=== PATIENT | female | born 1995 | race Caucasian/White ===

== ENCOUNTER → 2022-01-10 | Outpatient (CLI) | payer OTHER ==
[2022-01-10 17:19] LABS: HGB 14.4 g/dL (12.0-15.0); MCH 30.6 pg (27.0-32.0); MCV 95.7 fL (80.0-97.0); Mean Platelet Volume 11.9 fL (9.5-12.2); NRBC Per 100 WBC 0 /100 WBCS (0.0-0.0); Platelet Count 262 X 10*3/uL (140-440); RDW 12.3 % (11.5-14.5); WBC 8.03 X 10*3/uL (4.50-10.00)
[2022-01-10 18:38] LABS: African American GFR (CKD) 133.3 (60.0-200.0); Albumin 4.4 g/dL (3.8-4.9); Albumin/Globulin Ratio 1.88 (1.60-3.17); Anion Gap 13.3 mmol/L (10.00-18.00); BUN/Creat Ratio 18.12 Ratio (12.00-20.00); Blood Urea Nitrogen 13.1 mg/dL (9.0-27.0); Calcium 9.2 mg/dL (8.7-10.3); Carbon Dioxide 23.1 mmol/L (20.0-27.5); Globulin 2.3 g/dL (1.6-3.3); Potassium 4.6 mmol/L (3.5-5.5); Total Bilirubin 0.5 mg/dL (0.30-1.20); Total Protein 6.7 g/dL (6.2-8.2)
[2022-01-10 18:39] LABS: T4, Free (Free Thyroxine) 1.52 ng/dL (0.800-1.800)
== END | disposition home or self-care (01) ==
LOC: LABWHC1 10:13
PROVIDERS: ATTEND Physician Assistant
DX: R00.2 Palpitations (principal)
CPT/HCPCS: 36415; 80053; 84439; 84443; 85027

== ENCOUNTER 2022-05-19 18:24 | Emergency (ER) | payer MEDICARE, OTHER ==
[2022-05-19 19:00] VITALS: BP 136/73; PULSE 75; RESP 18; TEMP 98
--- NOTE | 2022-05-19 19:02 | ED ---
ENT HPI - General Stated complaint: ear ache, chest pain Time Seen by Provider: 05/19/22 18:55 Source: RN notes reviewed - History of Present Illness Initial comments: Patient presents with right ear pain,, runny nose, upper respiratory symptoms last 5-7 days. Patient states she is also feeling lightheaded. 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 No headache, no fever or chills, no changes in vision or hearing, no sore throat or difficulty with speech, no neck pain, positive nonproductive cough, patient states it hurts to cough., no abdominal pain, no nausea or vomiting, no changes in urination or bowel movements, no numbness or tingling, no extremity pain, no skin rashes or lesions. Past medical, surgical, social, and family history reviewed. Patient had COVID-19 in 2019. MD complaint: ear pain - Related Data Previous Rx's Medication Instructions Recorded Benzonatate [Tessalon Perles] 100 mg PO TID PRN #30 capsule 05/19/22 methylPREDNISolone [Medrol Dose 0 mg PO DIRECTED #1 packet 05/19/22 Pack] Allergies Allergy/AdvReac Type Severity Reaction Status Date / Time No Known Allergies Allergy Verified 05/19/22 18:55 Review of Systems ROS Statement: Those systems with pertinent positive or pertinent negative responses have been documented in the HPI. ROS Other: All systems not noted in ROS Statement are negative. General Exam - General Exam Comments Initial Comments: Mildly ill-appearing 26-year-old female in minimal distress. Does not appear to be toxic. Vital signs reviewed General appearance: alert, in no apparent distress Head exam: Present: atraumatic, normocephalic, normal inspection Eye exam: Present: normal appearance, PERRL, EOMI. Absent: scleral icterus, conjunctival injection, periorbital swelling ENT exam: Present: normal exam, normal oropharynx, mucous membranes moist, TM's normal bilaterally, normal external ear exam, other (Preliminary nose noted). Absent: mucous membranes dry Neck exam: Present: normal inspection, full ROM. Absent: tenderness, menin gismus, lymphadenopathy Respiratory exam: Present: normal lung sounds bilaterally. Absent: respiratory distress, wheezes, rales, rhonchi, stridor Cardiovascular Exam: Present: regular rate, normal rhythm, normal heart sounds. Absent: systolic murmur, diastolic murmur, rubs, gallop, clicks GI/Abdominal exam: Present: soft, normal bowel sounds. Absent: distended, tenderness, guarding, rebound, rigid Extremities exam: Present: normal inspection, full ROM, normal capillary refill. Absent: tenderness, pedal edema, joint swelling, calf tenderness Back exam: Present: normal inspection Neurological exam: Present: alert, oriented X3, CN II-XII intact Psychiatric exam: Present: normal affect, normal mood Skin exam: Present: warm, dry, intact, normal color. Absent: rash Course Vital Signs 05/19/22 18:55 Temperature 98 F Pulse Rate 75 Respiratory 18 Rate Blood Pressure 136/73 O2 Sat by Pulse 99 Oximetry Medical Decision Making - Medical Decision Making Patient septostomy most consistent with a viral upper respiratory infection. Patient's COVID-19 test is negative. Chest x-ray is clear. Right ear showed no evidence of infectious process. Suspect inadequate eustachian tube function. I'll treat her with a Medrol Dosepak, cough medication, and follow-up. All findings discussed with the patient. Treatment plan discussed. All questions answered Patient is PERC one for control pills Patient was told to return to the ER for any signs or symptoms worsen. Told to return immediately if any other problems arise. All questions answered. Treatment plan discussed. Patient in agreement Every effort has been made to ensure accuracy of this dictation. However, due to the limitations of electronic medical records and dictation devices, errors in charting still occur. The case was discussed in detail with ED attending physician. Presentation, findings, treatment plan discussed in detail. Legal Aide Dr. Ayala - Lab Data Result diagrams: 05/19/22 20:41 Lab Results 05/19/22 05/19/22 05/19/22 Range/Units 19:20 20:41 20:41 WBC 11.4 H (3.8-10.6) k/uL RBC 5.01 (3.80-5.40) m/uL Hgb 15.2 (11.4-16.0) gm/dL Hct 46.9 H (34.0-46.0) % MCV 93.6 (80.0-100.0) fL MCH 30.3 (25.0-35.0) pg MCHC 32.3 (31.0-37.0) g/dL RDW 12.0 (11.5-15.5) % Plt Count 264 (150-450) k/uL MPV 8.2 Neutrophils % 60 % Lymphocytes % 33 % Monocytes % 5 % Eosinophils % 1 % Basophils % 0 % Neutrophils # 6.8 (1.3-7.7) k/uL Lymphocytes # 3.8 (1.0-4.8) k/uL Monocytes # 0.5 (0-1.0) k/uL Eosinophils # 0.1 (0-0.7) k/uL Basophils # 0.1 (0-0.2) k/uL D-Dimer (<0.60) mg/L FEU Magnesium 2.0 (1.6-2.3) mg/dL Troponin I (0.000-0.034) ng/mL Coronavirus (PCR) Not Detected (Not Detectd) 05/19/22 05/19/22 Range/Units 20:41 20:41 WBC (3.8-10.6) k/uL RBC (3.80-5.40) m/uL Hgb (11.4-16.0) gm/dL Hct (34.0-46.0) % MCV (80.0-100.0) fL MCH (25.0-35.0) pg MCHC (31.0-37.0) g/dL RDW (11.5-15.5) % Plt Count (150-450) k/uL MPV Neutrophils % % Lymphocytes % % Monocytes % % Eosinophils % % Basophils % % Neutrophils # (1.3-7.7) k/uL Lymphocytes # (1.0-4.8) k/uL Monocytes # (0-1.0) k/uL Eosinophils # (0-0.7) k/uL Basophils # (0-0.2) k/uL D-Dimer 0.27 (<0.60) mg/L FEU Magnesium (1.6-2.3) mg/dL Troponin I <0.012 (0.000-0.034) ng/mL Coronavirus (PCR) (Not Detectd) - EKG Data EKG Comments: EKG done at 2041 and read by the ED attending physician reveals sinus rhythm with a rate of 79. Intervals are normal. Left axis deviation, poor R-wave progression. Low voltage in the lateral precordial leads. Possible left ventricular hypertrophy. Nonspecific T-wave changes with flattening in V2, V3 and inversion in lead 3. No comparison study Disposition Clinical Impression: Viral URI with cough, Otalgia of right ear, Eustachian tube dysfunction Disposition: HOME SELF-CARE Condition: Good Instructions (If sedation given, give patient instructions): Upper Respiratory Infection (ED) Additional Instructions: Follow-up with your regular physician as directed. Return to the ER immediately if any symptoms worsen, new symptoms arise, or any other problems develop. Prescriptions: methylPREDNISolone [Medrol Dose Pack] 0 mg PO DIRECTED #1 packet Benzonatate [Tessalon Perles] 100 mg PO TID PRN #30 capsule PRN Reason: Cough Is patient prescribed a controlled substance at d/c from ED?: No Referrals: Royce Allen MD [Primary Care Provider] - 1-2 days
--- NOTE | 2022-05-19 19:20 | XR ---
EXAMINATION TYPE: XR chest 2V DATE OF EXAM: 05/19/2022 7:08 PM COMPARISON: None TECHNIQUE: XR chest 2V Frontal and lateral views of the chest. CLINICAL INDICATION:Female, 26 years old with history of Cough; FINDINGS: Lungs/Pleura: There is no evidence of pleural effusion, focal consolidation, or pneumothorax. Pulmonary vascularity: Unremarkable. Heart/mediastinum: Cardiomediastinal silhouette is unremarkable. Musculoskeletal: No acute osseous pathology. IMPRESSION: No acute cardiopulmonary disease/process.
[2022-05-19 21:05] LABS: Basophils # (A) 0.1 k/uL (0-0.2); Basophils % (A) 0 %; Eosinophils # (A) 0.1 k/uL (0-0.7); Eosinophils % (A) 1 %; HCT 46.9 % (34.0-46.0); HGB 15.2 gm/dL (11.4-16.0); Lymphocytes # (A) 3.8 k/uL (1.0-4.8); Lymphocytes % (A) 33 %; MCH 30.3 pg (25.0-35.0); MCHC 32.3 g/dL (31.0-37.0); MCV 93.6 fL (80.0-100.0); Mean Platelet Volume 8.2; Monocytes # (A) 0.5 k/uL (0-1.0); Monocytes % (A) 5 %; Neutrophils # (A) 6.8 k/uL (1.3-7.7); Neutrophils % (A) 60 %; Platelet Count 264 k/uL (150-450); RBC 5.01 m/uL (3.80-5.40); WBC 11.4 k/uL (3.8-10.6)
== END 2022-05-19 22:13 | disposition home or self-care (01) ==
LOC: EC 18:24
DX: J06.9 Acute upper respiratory infection, unspecified (principal); H69.91 Unspecified Eustachian tube disorder, right ear; R07.9 Chest pain, unspecified; Z20.822 Contact with and (suspected) exposure to COVID-19
CPT/HCPCS: 36415; 71046; 83735; 84484; 85025; 85379; 87635; 93005; 99284

== ENCOUNTER 2022-08-30 01:47 | Emergency (ER) | payer MEDICARE, OTHER ==
[2022-08-30] MEDS ORDERED: SODIUM CHLORIDE 0.9% 1,000 ML IV STA (02:01)
--- NOTE | 2022-08-30 02:02 | ED ---
Overdose HPI - General Source: patient, RN notes reviewed, old records reviewed Mode of arrival: ambulatory Limitations: no limitations, language barrier - History of Present Illness MD Complaint: intentional overdose, accidental overdose -: minutes(s) Intent: unwilling to say How Overdose Was Discovered: called family/friend Context: Intentional Overdose: drug/ETOH problems Context: Accidental Overdose: medication error Associated Symptoms: depression Treatments Prior to Arrival: none <Darrel Carlton - Last Filed: 08/30/22 07:08> <Darrel Bryant - Last Filed: 08/30/22 11:10> - General Chief Complaint: Overdose Stated Complaint: over dose Time Seen by Provider: 08/30/22 02:01 - History of Present Illness Initial Comments: This is a 27-year-old female DF for evaluation patient Dese for evaluation of psychiatric illness. Patient did take overdose and attempted suicide attempt tonight. Multiple different medications, we did speak with poison control who had concern for provoke seizures (Darrel Carlton) - Related Data Previous Rx's Medication Instructions Recorded Benzonatate [Tessalon Perles] 100 mg PO TID PRN #30 capsule 05/19/22 methylPREDNISolone [Medrol Dose 0 mg PO DIRECTED #1 packet 05/19/22 Pack] Allergies Allergy/AdvReac Type Severity Reaction Status Date / Time No Known Allergies Allergy Verified 08/30/22 01:56 EST Review of Systems ROS Other: All systems not noted in ROS Statement are negative. <Darrel Carlton - Last Filed: 08/30/22 07:08> ROS Other: All systems not noted in ROS Statement are negative. <Darrel Bryant - Last Filed: 08/30/22 11:10> ROS Statement: Those systems with pertinent positive or pertinent negative responses have been documented in the HPI. Past Medical History Additional Past Medical History / Comment(s): autism History of Any Multi-Drug Resistant Organisms: None Reported Past Surgical History: Coronary Bypass/CABG, Ear Surgery Additional Past Surgical History / Comment(s): wisdom, bunion Past Psychological History: ADD/ADHD, Anxiety, Depression Smoking Status: Never smoker Past Alcohol Use History: Occasional Past Drug Use History: None Reported <Darrel Carlton - Last Filed: 08/30/22 07:08> General Exam Limitations: no limitations General appearance: alert, in no apparent distress Head exam: Present: atraumatic, normocephalic, normal inspection Eye exam: Present: normal appearance, PERRL, EOMI. Absent: scleral icterus, conjunctival injection, periorbital swelling ENT exam: Present: normal exam, mucous membranes moist Neck exam: Present: normal inspection. Absent: tenderness, meningismus, lymphadenopathy Respiratory exam: Present: normal lung sounds bilaterally. Absent: respiratory distress, wheezes, rales, rhonchi, stridor Cardiovascular Exam: Present: normal rhythm, tachycardia, normal heart sounds. Absent: systolic murmur, diastolic murmur, rubs, gallop, clicks GI/Abdominal exam: Present: soft, normal bowel sounds. Absent: distended, tenderness, guarding, rebound, rigid Extremities exam: Present: normal inspection, full ROM, normal capillary refill. Absent: tenderness, pedal edema, joint swelling, calf tenderness Back exam: Present: normal inspection Neurological exam: Present: alert, oriented X3, CN II-XII intact Psychiatric exam: Present: normal affect, normal mood Skin exam: Present: warm, dry, intact, normal color. Absent: rash <Darrel Carlton - Last Filed: 08/30/22 07:08> Course <Darrel Carlton - Last Filed: 08/30/22 07:08> Vital Signs 08/30/22 08/30/22 08/30/22 01:52 EST 03:06 04:18 Temperature 97.7 F 98.2 F Pulse Rate 109 H 84 84 Respiratory 20 16 16 Rate Blood Pressure 154/99 110/74 O2 Sat by Pulse 100 98 Oximetry - Reevaluation(s) Reevaluation #1: 08/30/22 06:22 medical record is reviewed medically clear for psychiatrc evaluation (Darrel Carlton) Medical Decision Making - Lab Data Result diagrams: 08/30/22 02:00 08/30/22 02:00 - EKG Data -: EKG Interpreted by Me (EKG is sinus 92 ID 185 QRS 97 QTC 392) <Darrel Carlton - Last Filed: 08/30/22 07:08> - Lab Data Result diagrams: 08/30/22 02:00 08/30/22 02:00 <Darrel Bryant - Last Filed: 08/30/22 11:10> - Medical Decision Making EPS evaluated the patient and determined with a safety plan that the patient cou ld go home safely. (Darrel Bryant) - Lab Data Lab Results 08/30/22 08/30/22 08/30/22 Range/Units 02:00 02:00 02:00 WBC 11.4 H (3.8-10.6) k/uL RBC 4.72 (3.80-5.40) m/uL Hgb 14.2 (11.4-16.0) gm/dL Hct 42.9 (34.0-46.0) % MCV 90.8 (80.0-100.0) fL MCH 30.2 (25.0-35.0) pg MCHC 33.2 (31.0-37.0) g/dL RDW 12.2 (11.5-15.5) % Plt Count 258 (150-450) k/uL MPV 9.0 Neutrophils % 50 % Lymphocytes % 43 % Monocytes % 4 % Eosinophils % 1 % Basophils % 1 % Neutrophils # 5.7 (1.3-7.7) k/uL Lymphocytes # 4.8 (1.0-4.8) k/uL Monocytes # 0.5 (0-1.0) k/uL Eosinophils # 0.1 (0-0.7) k/uL Basophils # 0.1 (0-0.2) k/uL PT 10.2 (9.0-12.0) sec INR 0.9 (<1.2) Sodium 140 (137-145) mmol/L Potassium 3.8 (3.5-5.1) mmol/L Chloride 107 (98-107) mmol/L Carbon Dioxide 17 L (22-30) mmol/L Anion Gap 16 mmol/L BUN 14 (7-17) mg/dL Creatinine 0.90 (0.52-1.04) mg/dL Est GFR (CKD-EPI)AfAm >90 (>60 ml/min/1.73 sqM) Est GFR (CKD-EPI)NonAf 88 (>60 ml/min/1.73 sqM) Glucose 108 H (74-99) mg/dL Calcium 8.9 (8.4-10.2) mg/dL Phosphorus 3.8 (2.5-4.5) mg/dL Magnesium 2.1 (1.6-2.3) mg/dL Total Bilirubin 0.4 (0.2-1.3) mg/dL AST 27 (14-36) U/L ALT 42 H (4-34) U/L Alkaline Phosphatase 63 (38-126) U/L Total Protein 7.2 (6.3-8.2) g/dL Albumin 4.4 (3.5-5.0) g/dL Lipase 242 (23-300) U/L Urine Color Urine Appearance (Clear) Urine pH (5.0-8.0) Ur Specific [place] (1.001-1.035) Urine Protein (Negative) Urine Glucose (UA) (Negative) Urine Ketones (Negative) Urine Blood (Negative) Urine Nitrite (Negative) Urine Bilirubin (Negative) Urine Urobilinogen (<2.0) mg/dL Ur Leukocyte Esterase (Negative) Urine HCG, Qual (Not Detectd) Salicylates <1.0 mg/dL Urine Opiates Screen (NotDetected) Ur Oxycodone Screen (NotDetected) Urine Methadone Screen (NotDetected) Ur Propoxyphene Screen (NotDetected) Acetaminophen <10.0 ug/mL Ur Barbiturates Screen (NotDetected) U Tricyclic Antidepress (NotDetected) Ur Phencyclidine Scrn (NotDetected) Ur Amphetamines Screen (NotDetected) U Methamphetamines Scrn (NotDetected) U Benzodiazepines Scrn (NotDetected) Urine Cocaine Screen (NotDetected) U Marijuana (THC) Screen (NotDetected) Serum Alcohol <10 mg/dL Coronavirus (PCR) (Not Detectd) 08/30/22 08/30/22 08/30/22 Range/Units 04:14 05:57 05:57 WBC (3.8-10.6) k/uL RBC (3.80-5.40) m/uL Hgb (11.4-16.0) gm/dL Hct (34.0-46.0) % MCV (80.0-100.0) fL MCH (25.0-35.0) pg MCHC (31.0-37.0) g/dL RDW (11.5-15.5) % Plt Count (150-450) k/uL MPV Neutrophils % % Lymphocytes % % Monocytes % % Eosinophils % % Basophils % % Neutrophils # (1.3-7.7) k/uL Lymphocytes # (1.0-4.8) k/uL Monocytes # (0-1.0) k/uL Eosinophils # (0-0.7) k/uL Basophils # (0-0.2) k/uL PT (9.0-12.0) sec INR (<1.2) Sodium (137-145) mmol/L Potassium (3.5-5.1) mmol/L Chloride (98-107) mmol/L Carbon Dioxide (22-30) mmol/L Anion Gap mmol/L BUN (7-17) mg/dL Creatinine (0.52-1.04) mg/dL Est GFR (CKD-EPI)AfAm (>60 ml/min/1.73 sqM) Est GFR (CKD-EPI)NonAf (>60 ml/min/1.73 sqM) Glucose (74-99) mg/dL Calcium (8.4-10.2) mg/dL Phosphorus (2.5-4.5) mg/dL Magnesium (1.6-2.3) mg/dL Total Bilirubin (0.2-1.3) mg/dL AST (14-36) U/L ALT (4-34) U/L Alkaline Phosphatase (38-126) U/L Total Protein (6.3-8.2) g/dL Albumin (3.5-5.0) g/dL Lipase (23-300) U/L Urine Color Light Yellow Urine Appearance Clear (Clear) Urine pH 6.0 (5.0-8.0) Ur Specific [place] 1.015 (1.001-1.035) Urine Protein Negative (Negative) Urine Glucose (UA) Negative (Negative) Urine Ketones Negative (Negative) Urine Blood Negative (Negative) Urine Nitrite Negative (Negative) Urine Bilirubin Negative (Negative) Urine Urobilinogen <2.0 (<2.0) mg/dL Ur Leukocyte Esterase Negative (Negative) Urine HCG, Qual Not Detected (Not Detectd) Salicylates mg/dL Urine Opiates Screen Not Detected (NotDetected) Ur Oxycodone Screen Not Detected (NotDetected) Urine Methadone Screen Not Detected (NotDetected) Ur Propoxyphene Screen Not Detected (NotDetected) Acetaminophen ug/mL Ur Barbiturates Screen Not Detected (NotDetected) U Tricyclic Antidepress Not Detected (NotDetected) Ur Phencyclidine Scrn Not Detected (NotDetected) Ur Amphetamines Screen Not Detected (NotDetected) U Methamphetamines Scrn Not Detected (NotDetected) U Benzodiazepines Scrn Not Detected (NotDetected) Urine Cocaine Screen Not Detected (NotDetected) U Marijuana (THC) Screen Not Detected (NotDetected) Serum Alcohol mg/dL Coronavirus (PCR) Not Detected (Not Detectd) Disposition <Darrel Carlton - Last Filed: 08/30/22 07:08> Is patient prescribed a controlled substance at d/c from ED?: No Time of Disposition: 11:10 <Darrel Bryant - Last Filed: 08/30/22 11:10> Clinical Impression: Situational depression Disposition: HOME SELF-CARE Condition: Good Instructions (If sedation given, give patient instructions): Depression (ED) Referrals: Tripp Allen MD [REFERRING] - 1-2 days
[2022-08-30 02:30] LABS: Basophils # (A) 0.1 k/uL (0-0.2); Basophils % (A) 1 %; Eosinophils # (A) 0.1 k/uL (0-0.7); Eosinophils % (A) 1 %; HCT 42.9 % (34.0-46.0); HGB 14.2 gm/dL (11.4-16.0); Lymphocytes # (A) 4.8 k/uL (1.0-4.8); Lymphocytes % (A) 43 %; MCH 30.2 pg (25.0-35.0); MCHC 33.2 g/dL (31.0-37.0); MCV 90.8 fL (80.0-100.0); Monocytes # (A) 0.5 k/uL (0-1.0); Monocytes % (A) 4 %; Neutrophils # (A) 5.7 k/uL (1.3-7.7); Neutrophils % (A) 50 %; Platelet Count 258 k/uL (150-450); RBC 4.72 m/uL (3.80-5.40); RDW 12.2 % (11.5-15.5); WBC 11.4 k/uL (3.8-10.6)
[2022-08-30 02:43] LABS: ALT 42 U/L (4-34); AST 27 U/L (14-36); Acetaminophen <10.0 ug/mL; African American GFR (CKD) >90 (>60 ml/min/1.73 sqM); Albumin 4.4 g/dL (3.5-5.0); Alcohol <10 mg/dL; Alkaline Phosphatase 63 U/L (38-126); Anion Gap 16 mmol/L; Blood Urea Nitrogen 14 mg/dL (7-17); Calcium 8.9 mg/dL (8.4-10.2); Carbon Dioxide 17 mmol/L (22-30); Chloride 107 mmol/L (98-107); Glucose 108 mg/dL (74-99); Lipase 242 U/L (23-300); Magnesium 2.1 mg/dL (1.6-2.3); Non-African American GFR(CKD) 88 (>60 ml/min/1.73 sqM); Phosphorus 3.8 mg/dL (2.5-4.5); Potassium 3.8 mmol/L (3.5-5.1); Salicylate <1.0 mg/dL; Sodium 140 mmol/L (137-145); Total Bilirubin 0.4 mg/dL (0.2-1.3); Total Protein 7.2 g/dL (6.3-8.2)
[2022-08-30 02:47] LABS: INR 0.9 (<1.2); Prothrombin Time 10.2 sec (9.0-12.0)
[2022-08-30 06:36] LABS: Appearance,Urine Clear (Clear); Bilirubin,Urine Negative (Negative); Blood,Urine Negative (Negative); Color,Urine Light Yellow; Glucose,Urine (UA) Negative (Negative); Ketones,Urine Negative (Negative); Leukocyte Esterase,Urine Negative (Negative); Nitrite,Urine Negative (Negative); Protein,Urine Negative (Negative); Specific Gravity,Urine 1.015 (1.001-1.035); Urobilinogen,Urine <2.0 mg/dL (<2.0)
[2022-08-30 06:42] LABS: Amphetamine Screen,Urine Not Detected (NotDetected); Barbiturate Screen,Urine Not Detected (NotDetected); Benzodiazepines Screen,Urine Not Detected (NotDetected); Cocaine Screen,Urine Not Detected (NotDetected); Methadone Screen, Urine Not Detected (NotDetected); Opiate Screen,Urine Not Detected (NotDetected); Oxycodone Screen, Urine Not Detected (NotDetected); Phencyclidine Screen,Urine Not Detected (NotDetected); Tricyclic Antidepressant,Urine Not Detected (NotDetected); Urn Cannabinoid Scrn Not Detected (NotDetected)
[2022-08-30 11:46] VITALS: BP 132/79; PULSE 88; RESP 18; TEMP 98.1
== END 2022-08-30 11:46 | disposition home or self-care (01) ==
LOC: EC 01:47
DX: F32.A Depression, unspecified (principal)
CPT/HCPCS: 82075; 36415; 93005; 80053; 83690; 83735; 84100; 85025; 85610; 81003; 81025; 80306; 80143; 87635; 80179; 99285; G0480; 80320

== ENCOUNTER 2022-09-24 21:29 | Emergency (ER) | payer MEDICARE, OTHER ==
--- NOTE | 2022-09-24 23:34 | XR ---
EXAMINATION TYPE: XR chest 2V DATE OF EXAM: 09/24/2022 COMPARISON: NONE HISTORY: Cough TECHNIQUE: 2 view FINDINGS: Heart and mediastinum are normal. Lungs are clear. Diaphragm is normal. Bony thorax is norm al. IMPRESSION: Normal chest.
[2022-09-25] MEDS ORDERED: predniSONE 50 MG TAB PO STA (00:24)
[2022-09-25] MEDS ORDERED: IPRATROPIUM-ALBUTEROL 3 ML NEB INHALATION STA (00:24)
[2022-09-25 00:26] VITALS: BP 125/85; TEMP 97.6
[2022-09-25 00:31] VITALS: RESP 19
--- NOTE | 2022-09-25 00:32 | ED ---
URI HPI - General Chief Complaint: Upper Respiratory Infection Stated Complaint: Cough,LEIGH Time Seen by Provider: 09/24/22 23:54 Source: patient, RN notes reviewed Mode of arrival: ambulatory Limitations: no limitations - History of Present Illness Initial Comments: This is a pleasant 27-year-old female who was diagnosed with influenza on . Patient has had a cough since then. Patient believes she is coughing worse since then. Patient states she went to a coughing fit earlier this evening and actually felt like she could not breathe during the coughing fit. Patient took 2 puffs off her friend's inhaler and states that it seemed to help. Patient has no history of asthma or cigarette smoking. No headache, no fever or chills, no changes in vision or hearing, no sore throat or difficulty with speech, no neck pain, no chest pain, no abdominal pain, no nausea or vomiting, no changes in urination or bowel movements, no numbness or tingling, no extremity pain, no skin rashes or lesions. Past medical, surgical, social, and family history reviewed. MD Complaint: cough - Related Data Previous Rx's Medication Instructions Recorded Benzonatate [Tessalon Perles] 100 mg PO TID PRN #30 capsule 05/19/22 methylPREDNISolone [Medrol Dose 0 mg PO DIRECTED #1 packet 05/19/22 Pack] Albuterol Inhaler [Ventolin Hfa 2 puff INHALATION Q4HR PRN #1 each 09/25/22 Inhaler] predniSONE 50 mg PO DAILY #3 tab 09/25/22 Allergies Allergy/AdvReac Type Severity Reaction Status Date / Time No Known Allergies Allergy Verified 09/24/22 23:14 Review of Systems ROS Statement: Those systems with pertinent positive or pertinent negative responses have been documented in the HPI. ROS Other: All systems not noted in ROS Statement are negative. Past Medical History Additional Past Medical History / Comment(s): autism History of Any Multi-Drug Resistant Organisms: None Reported Past Surgical History: Coronary Bypass/CABG, Ear Surgery Additional Past Surgical History / Comment(s): ramone, rachell Past Psychological History: ADD/ADHD, Anxiety, Depression Smoking Status: Never smoker Past Alcohol Use History: Occasional Past Drug Use History: None Reported General Exam - General Exam Comments Initial Comments: Patient appears to be minimally ill but not toxic. Vital signs stable, patient afebrile. Limitations: no limitations General appearance: alert, in no apparent distress Head exam: Present: atraumatic, normocephalic, normal inspection Eye exam: Present: normal appearance, PERRL, EOMI. Absent: scleral icterus, conjunctival injection, periorbital swelling ENT exam: Present: normal exam, normal oropharynx, mucous membranes moist, normal external ear exam. Absent: mucous membranes dry Neck exam: Present: normal inspection. Absent: tenderness, meningismus, lymphadenopathy Respiratory exam: Present: normal lung sounds bilaterally, other (Dry cough noted during examination). Absent: respiratory distress, wheezes, rales, rhonchi, stridor, chest wall tenderness, accessory muscle use Cardiovascular Exam: Present: regular rate, normal rhythm, normal heart sounds. Absent: systolic murmur, diastolic murmur, rubs, gallop, clicks GI/Abdominal exam: Present: soft, normal bowel sounds. Absent: distended, tenderness, guarding, rebound, rigid Extremities exam: Present: normal inspection, full ROM, normal capillary refill. Absent: tenderness, pedal edema, joint swelling, calf tenderness Back exam: Present: normal inspection Neurological exam: Present: alert, oriented X3, CN II-XII intact Psychiatric exam: Present: normal affect, normal mood Skin exam: Present: warm, dry, intact, normal color. Absent: rash Course Vital Signs 09/24/22 09/25/22 09/25/22 23:10 00:14 00:21 Temperature 98.9 F 97.6 F Pulse Rate 87 78 Respiratory 20 18 19 Rate Blood Pressure 142/64 125/85 O2 Sat by Pulse 97 97 Oximetry 09/25/22 00:34 Temperature Pulse Rate 76 Respiratory Rate Blood Pressure O2 Sat by Pulse Oximetry Medical Decision Making - Medical Decision Making I suspect the patient has postinflammatory lung inflammation from the recent influenza infection. Chest x-ray is clear. Patient believes she was improved with albuterol treatments. Will prescribe a short course of prednisone and an inhaler. We'll have the patient follow-up with her PCP. Patient does not appear to have any systemic infection. Patient is PERC 0 Patient was told to return to the ER for any signs or symptoms worsen. Told to return immediately if any other problems arise. All questions answered. Treatment plan discussed. Patient in agreement Every effort has been made to ensure accuracy of this dictation. However, due to the limitations of electronic medical records and dictation devices, errors in charting still occur. The case was discussed in detail with ED attending physician. Presentation, findings, treatment plan discussed in detail. Accounting Supervisor Dr. Carlton - Lab Data Lab Results 09/24/22 09/24/22 Range/Units 23:18 23:18 Coronavirus (PCR) Not Detected (Not Detectd) Influenza Type A RNA Not Detected (Not Detectd) Influenza Type B (PCR) Not Detected (Not Detectd) RSV (PCR) Negative (Negative) - Radiology Data Radiology results: report reviewed, image reviewed Two-view chest x-ray read by me reveals no acute pathology. No infiltrate. No pneumothorax. No cardiomegaly. No effusion. No osseous lesion. This was my interpretation. Reviewed radiology interpretation. Disposition Clinical Impression: Acute bronchitis Disposition: HOME SELF-CARE Condition: Stable Instructions (If sedation given, give patient instructions): Acute Bronchitis (ED) Additional Instructions: Albuterol 2 puffs every 4 hours as needed for coughing. Prednisone as directed. Follow-up with your regular physician as directed. Return to the ER immediately if any symptoms worsen, new symptoms arise, or any other problems develop. Is patient prescribed a controlled substance at d/c from ED?: No Referrals: Royce Allen MD [Primary Care Provider] - 1-2 days Time of Disposition: 00:47
[2022-09-25 00:49] VITALS: PULSE 80
== END 2022-09-25 01:04 | disposition home or self-care (01) ==
LOC: EC 21:29
DX: J20.9 Acute bronchitis, unspecified (principal); F41.9 Anxiety disorder, unspecified; F32.A Depression, unspecified; Z20.822 Contact with and (suspected) exposure to COVID-19
CPT/HCPCS: 94640; 87502; 87634; 87635; 71046; 99285; J7512

== ENCOUNTER → 2023-09-24 | Outpatient (CLI) | payer MEDICARE, OTHER ==
--- NOTE | 2023-09-24 23:02 | MR ---
EXAMINATION TYPE: MR knee RT wo con DATE OF EXAM: 09/24/2023 COMPARISON: Outside right knee x-ray September 15, 2023 HISTORY: Right knee pain, history of meniscus repair 2022. TECHNIQUE: Multiplanar, multisequence images of the knee is performed without IV contrast. FINDINGS: MEDIAL MENISCUS: Anterior and posterior horns are intact without tear. LATERAL MENISCUS: Partial discoid lateral meniscus redemonstrated. No suspicious new tear is seen. CRUCIATE LIGAMENTS: The anterior and posterior cruciate ligaments are intact and unremarkable. COLLATERAL LIGAMENTS: The medial collateral ligament and lateral collateral ligament complex are inta ct . Stable thickening and heterogeneous signal at the femoral attachment of the LCL consistent with old trauma. EXTENSOR MECHANISM: Visualized quadriceps and patellar tendons are intact. EFFUSION: No significant suprapatellar joint effusion. POPLITEAL CYST: No popliteal/aguillon cyst. TRICOMPARTMENT SPACES: Mild tricompartment joint space loss without significant spurring. CARTILAGE: Tricompartmental articular cartilage fairly well preserved. BONE MARROW SIGNAL: New 4 mm small focus of increased T2 signal involving the medial tibial plateau c oronal image 14 corresponding to sagittal image 11. OTHER: No additional significant abnormality is appreciated. IMPRESSION: No new meniscal or ligamentous tear is seen. New tiny 4 mm osteochondral injury medial ti bial plateau is noted.
== END | disposition home or self-care (01) ==
LOC: RADMRIMAIN 20:15
PROVIDERS: ATTEND Orthopaedic Surgery
DX: M25.561 Pain in right knee (principal); R93.7 Abnormal findings on diagnostic imaging of other parts of musculoskeletal system

== ENCOUNTER 2024-02-14 18:42 | Inpatient (IN) | payer MEDICARE, MEDICAID ==
--- NOTE | 2024-02-14 19:59 | ED ---
General Adult HPI - General Source: patient Mode of arrival: ambulatory Limitations: no limitations <Aroldo Rodgers - Last Filed: 02/14/24 20:00> <Simone Fuentes - Last Filed: 02/15/24 11:37> - General Source: RN notes reviewed, old records reviewed Mode of arrival: ambulatory Limitations: no limitations - History of Present Illness Consistency: constant, intermittent Improves with: none Worsens with: none Associated Symptoms: denies other symptoms <Darrel Carlton - Last Filed: 02/23/24 20:30> - General Chief complaint: Psychiatric Symptoms Stated complaint: Mental Health Time Seen by Provider: 02/14/24 19:58 - History of Present Illness Initial comments: 28-year-old female presents to the ED with complaints of suicidal ideation. Patient reports over the past month has had increasing suicidal ideation and reports yesterday had a break-up. Since then reports that this has been increasing. (Aroldo Rodgers) This is a 28-year-old female to the ER for evaluation patient presents today for need for psychiatric evaluation increasing suicidal thoughts (Darrel Carlton) - Related Data Home Medications Medication Instructions Recorded Confirmed Esomeprazole Magnesium [NexIUM] 20 mg PO DAILY 07/01/23 02/15/24 Levonorgestrel/Ethin.estradiol 1 tab PO DAILY 07/01/23 02/15/24 [Levora-28 Tablet] fluvoxaMINE MALEATE 50 mg PO BID 07/01/23 02/15/24 busPIRone HCl [Buspar] 10 mg PO BID 02/15/24 02/15/24 traZODone HCL [Desyrel] 100 mg PO HS 02/15/24 02/15/24 Allergies Allergy/AdvReac Type Severity Reaction Status Date / Time lorazepam [From Ativan] Allergy Hallucinati Verified 02/15/24 11:10 ons quetiapine [From Seroquel] Allergy Unknown Verified 02/15/24 11:10 sertraline [From Zoloft] Allergy Hallucinati Verified 02/15/24 11:10 ons Review of Systems ROS Other: All systems not noted in ROS Statement are negative. <Aroldo Rodgers - Last Filed: 02/14/24 20:00> ROS Other: All systems not noted in ROS Statement are negative. <Simone Fuentes - Last Filed: 02/15/24 11:37> ROS Other: All systems not noted in ROS Statement are negative. <Darrel Carlton - Last Filed: 02/23/24 20:30> ROS Statement: Those systems with pertinent positive or pertinent negative responses have been documented in the HPI. Past Medical History Past Medical History: GERD/Reflux Additional Past Medical History / Comment(s): autism sleep apnea History of Any Multi-Drug Resistant Organisms: None Reported Past Surgical History: Ear Surgery Additional Past Surgical History / Comment(s): wisdom, bunion Past Psychological History: ADD/ADHD, Anxiety, Depression Smoking Status: Never smoker Past Alcohol Use History: Occasional Past Drug Use History: None Reported <Aroldo Rodgers - Last Filed: 02/14/24 20:00> General Exam Limitations: no limitations <Aroldo Rodgers - Last Filed: 02/14/24 20:00> General appearance: alert, in no apparent distress Head exam: Present: atraumatic, normocephalic, normal inspection Eye exam: Present: normal appearance, PERRL, EOMI. Absent: scleral icterus, conjunctival injection, periorbital swelling ENT exam: Present: normal exam, mucous membranes moist Neck exam: Present: normal inspection. Absent: tenderness, meningismus, lymphadenopathy Respiratory exam: Present: normal lung sounds bilaterally. Absent: respiratory distress, wheezes, rales, rhonchi, stridor Cardiovascular Exam: Present: regular rate, normal rhythm, normal heart sounds. Absent: systolic murmur, diastolic murmur, rubs, gallop, clicks GI/Abdominal exam: Present: soft, normal bowel sounds. Absent: distended, tenderness, guarding, rebound, rigid Extremities exam: Present: normal inspection, full ROM, normal capillary refill. Absent: tenderness, pedal edema, joint swelling, calf tenderness Back exam: Present: normal inspection Neurological exam: Present: alert, oriented X3, CN II-XII intact Psychiatric exam: Present: normal affect, normal mood Skin exam: Present: warm, dry, intact, normal color. Absent: rash <Darrel Carlton - Last Filed: 02/23/24 20:30> - General Exam Comments Initial Comments: Visual Physical Exam Vital signs reviewed General: Well-appearing, nontoxic, no acute distress. Head: Normocephalic, atraumatic Eyes: PERRLA, EOMI ENT: Airway patent Chest: Nonlabored breathing Skin: No visual rash, normal skin tone Neuro: Alert and oriented 3 Musculoskeletal: No gross abnormalities (Aroldo Rodgers) Course <Darrel Carlton - Last Filed: 02/23/24 20:30> Vital Signs 02/14/24 02/15/24 02/15/24 18:55 15:00 16:00 Temperature 97.7 F 98.1 F 98.1 F Pulse Rate 76 67 67 Respiratory 20 18 18 Rate Blood Pressure 123/71 118/78 118/78 O2 Sat by Pulse 99 98 98 Oximetry - Reevaluation(s) Reevaluation #1: 02/14/24 23:26 Records reviewed (Darrel Carlton) Reevaluation #2: 02/14/24 23:26 Medically cleared for psychiatric evaluation (Darrel Carlton) Medical Decision Making <Aroldo Rodgers - Last Filed: 02/14/24 20:00> - Lab Data Result diagrams: 02/17/24 07:41 02/17/24 07:41 <Darrel Carlton - Last Filed: 02/23/24 20:30> - Medical Decision Making Quicknote portion performed. Signed Aroldo Rodgers PA-C (Aroldo Rodgers) 28 female be transferred for inpatient psychiatric evaluation and treatment (Darrel Carlton) - Lab Data Lab Results 02/14/24 02/15/24 02/15/24 Range/Units 22:23 01:28 13:48 POC Glucose (mg/dL) 80 101 (70-110) mg/dL POC Glu [place] Soaping Machine Operator ID Aroldo Hernandez Melissa Urine Opiates Screen Not Detected (NotDetected) Ur Oxycodone Screen Not Detected (NotDetected) Urine Methadone Screen Not Detected (NotDetected) Ur Barbiturates Screen Not Detected (NotDetected) U Tricyclic Antidepress Not Detected (NotDetected) Ur Phencyclidine Scrn Not Detected (NotDetected) Ur Amphetamines Screen Not Detected (NotDetected) U Methamphetamines Scrn Not Detected (NotDetected) U Benzodiazepines Scrn Not Detected (NotDetected) Urine Cocaine Screen Not Detected (NotDetected) U Marijuana (THC) Screen Not Detected (NotDetected) Influenza Type A (PCR) (Not Detectd) Influenza Type B (PCR) (Not Detectd) RSV (PCR) (Not Detectd) SARS-CoV-2 (PCR) (Not Detectd) 02/15/24 Range/Units 14:47 POC Glucose (mg/dL) (70-110) mg/dL POC Glu [place] Soaping Machine Operator ID Urine Opiates Screen (NotDetected) Ur Oxycodone Screen (NotDetected) Urine Methadone Screen (NotDetected) Ur Barbiturates Screen (NotDetected) U Tricyclic Antidepress (NotDetected) Ur Phencyclidine Scrn (NotDetected) Ur Amphetamines Screen (NotDetected) U Methamphetamines Scrn (NotDetected) U Benzodiazepines Scrn (NotDetected) Urine Cocaine Screen (NotDetected) U Marijuana (THC) Screen (NotDetected) Influenza Type A (PCR) Not Detected (Not Detectd) Influenza Type B (PCR) Not Detected (Not Detectd) RSV (PCR) Not Detected (Not Detectd) SARS-CoV-2 (PCR) Not Detected (Not Detectd) Disposition <Aroldo Rodgers - Last Filed: 02/14/24 20:00> <Simone Fuentes - Last Filed: 02/15/24 11:37> <Darrel Carlton - Last Filed: 02/23/24 20:30> Clinical Impression: Depression, Suicidal ideation Disposition: TRANSFER TO PSYCH HOSP/UNIT
[2024-02-14 22:48] LABS: Amphetamine Screen,Urine Not Detected (NotDetected); Barbiturate Screen,Urine Not Detected (NotDetected); Benzodiazepines Screen,Urine Not Detected (NotDetected); Cocaine Screen,Urine Not Detected (NotDetected); Methadone Screen, Urine Not Detected (NotDetected); Opiate Screen,Urine Not Detected (NotDetected); Oxycodone Screen, Urine Not Detected (NotDetected); Phencyclidine Screen,Urine Not Detected (NotDetected); Tricyclic Antidepressant,Urine Not Detected (NotDetected); Urn Cannabinoid Scrn Not Detected (NotDetected)
[2024-02-15 01:30] LABS: Glucose,Whole Blood 80 mg/dL (70-110)
[2024-02-15] MEDS: ACETAMINOPHEN TAB 500 MG TAB PO STA (13:02)
[2024-02-15 13:49] LABS: Glucose,Whole Blood 101 mg/dL (70-110)
[2024-02-15] MEDS ORDERED: HALOPERIDOL LACTATE 5 MG/ML 1 ML VIAL IM PRN (15:57)
[2024-02-15] MEDS ORDERED: hydrOXYzine HCL 50 MG/ML 1 ML VIAL IM PRN (15:57)
[2024-02-15] MEDS ORDERED: MAGNESIUM HYDROXIDE 2,400 MG/30 ML CUP PO PRN (15:57)
[2024-02-15] MEDS ORDERED: ACETAMINOPHEN TAB 325 MG TAB PO PRN (15:57)
[2024-02-15 18:05] LABS: Appearance,Urine Clear (Clear); Bilirubin,Urine Negative (Negative); Blood,Urine Small (Negative); Color,Urine Light Yellow; Glucose,Urine (UA) Negative (Negative); Ketones,Urine Negative (Negative); Leukocyte Esterase,Urine Negative (Negative); Mucus,Urine Rare /hpf; Nitrite,Urine Negative (Negative); Protein,Urine Negative (Negative); RBC,Urine 4 /hpf (0-5); Specific Gravity,Urine 1.012 (1.001-1.035); Squamous Epithelial Cell,Urine 1 /hpf (0-4); Urobilinogen,Urine <2.0 mg/dL (<2.0); WBC,Urine 2 /hpf (0-5)
[2024-02-15] MEDS: IBUPROFEN 600 MG TAB PO PRN (18:24)
[2024-02-15] MEDS: busPIRone HCl 10 MG TAB PO SCH (20:16)
[2024-02-15] MEDS: traZODone HCL 100 MG TAB PO SCH (20:16)
[2024-02-16] MEDS: NICOTINE 14MG/24HR PATCH TRANSDERM SCH (08:48)
[2024-02-16] MEDS: ETHIN ESTRADIOL PO SCH (08:48)
[2024-02-16] MEDS: LEVONORGESTREL PO SCH (08:48)
[2024-02-16] MEDS: PANTOPRAZOLE 40 MG TABLET PO SCH (08:48)
[2024-02-16 11:29] LABS: Basophils % (A) 0 %; Eosinophils % (A) 1 %; HCT 47.3 % (34.0-46.0); HGB 16.2 gm/dL (11.4-16.0); Lymphocytes # (A) 2.5 k/uL (1.0-4.8); Lymphocytes % (A) 33 %; MCH 32.6 pg (25.0-35.0); MCHC 34.3 g/dL (31.0-37.0); MCV 94.9 fL (80.0-100.0); Mean Platelet Volume 8.9; Monocytes # (A) 0.3 k/uL (0-1.0); Monocytes % (A) 4 %; Neutrophils # (A) 4.5 k/uL (1.3-7.7); Neutrophils % (A) 61 %; Platelet Count 215 k/uL (150-450); RBC 4.98 m/uL (3.80-5.40); RDW 12.7 % (11.5-15.5); WBC 7.4 k/uL (3.8-10.6)
[2024-02-16 11:37] LABS: ALT 49 U/L (4-34); African American GFR (CKD) >90 (>60 ml/min/1.73 sqM); Albumin 4.5 g/dL (3.5-5.0); Anion Gap 14 mmol/L; Bilirubin, Delta 0.5 mg/dL (0.0-0.2); Bilirubin,Unconjugated 0.4 mg/dL (0.0-1.1); Blood Urea Nitrogen 9 mg/dL (7-17); Calcium 9.4 mg/dL (8.4-10.2); Carbon Dioxide 18 mmol/L (22-30); Chloride 109 mmol/L (98-107); Glucose 84 mg/dL (74-99); Non-African American GFR(CKD) >90 (>60 ml/min/1.73 sqM); Sodium 141 mmol/L (137-145); Total Bilirubin 0.9 mg/dL (0.2-1.3); Total Protein 7.7 g/dL (6.3-8.2)
[2024-02-16 12:16] LABS: AST 41 U/L (14-36); Alkaline Phosphatase 55 U/L (38-126); Potassium 4.4 mmol/L (3.5-5.1)
--- NOTE | 2024-02-16 13:29 | P.MDCNMH ---
History of Present Illness H&P Date: 02/16/24 This is a very pleasant 28-year-old female who presented to the emergency department with increasing suicidal ideation with thoughts of wanting to harm herself and had a plan. Patient reports she has been suicidal and becoming increasingly suicidal over the last 6 months and had a recent break-up with her significant other causing a significant downward spiral and came here for further psychiatric evaluation. Patient follows with Dr. Burks in the outpatient setting with a past medical history of GERD, autism, sleep apnea, ADD/ADHD, anxiety depression. Patient follows with Dr. Miguel Hall as her psychiatrist in the outpatient setting although currently looking into another provider and possibly [facility] in the outpatient setting. Patient reports has been on her psychiatric medications for quite some time and feels they are not effective and came here for further psychiatric evaluation and possible medication adjustment. Patient continues to report she is suicidal and having thoughts. Patient labs reviewed and within normal limits other than mildly elevated AST ALT which could be contributed to her medications. TSH was normal urinalysis was negative and COVID, influenza, RSV testing was negative as well. Urine hCG was negative. Patient reports she takes control pills for regularity although has been wanting to get off of them and has not had them in the last few days. Patient reports she is not sexually active at this time. Have instructed the patient to follow-up with Dr. Anaya regarding discontinuation of medications. Patient denies chest pain or shortness of breath. Patient reports no nausea or vomiting with not much of an appetite although is eating. Vital signs been stable. REVIEW OF SYSTEMS: CONSTITUTIONAL: No fever, no malaise, no fatigue. HEENT: No recent visual problems or hearing problems. Denied any sore throat. CARDIOVASCULAR: No chest pain, orthopnea, PND, no palpitations, no syncope. PULMONARY: No shortness of breath, no cough, no hemoptysis. GASTROINTESTINAL: No diarrhea, no nausea, no vomiting, no abdominal pain. NEUROLOGICAL: No headaches, no weakness, no numbness. HEMATOLOGICAL: Denies any bleeding or petechiae. GENITOURINARY: Denies any burning micturition, frequency, or urgency. MUSCULOSKELETAL/RHEUMATOLOGICAL: Denies any joint pain, swelling, or any muscle pain. ENDOCRINE: Denies any polyuria or polydipsia. The rest of the 14-point review of systems is negative. PHYSICAL EXAMINATION: GENERAL: The patient is alert and oriented x3, not in any acute distress. Well developed, well nourished. Mildly anxious on exam, obese HEENT: Pupils are round and equally reacting to light. EOMI. No scleral icterus. No conjunctival pallor. Normocephalic, atraumatic. No pharyngeal erythema. No thyromegaly. CARDIOVASCULAR: S1 and S2 present. No murmurs, rubs, or gallops. PULMONARY: Chest is clear to auscultation, no wheezing or crackles. ABDOMEN: Soft, obese, nontender, nondistended, normoactive bowel sounds. No palpable organomegaly. MUSCULOSKELETAL: No joint swelling or deformity. EXTREMITIES: No cyanosis, clubbing, or pedal edema. NEUROLOGICAL: Gross neurological examination did not reveal any focal deficits. Gait steady SKIN: No rashes. Assessment: Suicidal ideation Severe depression History of ADD/ADHD History of depression GERD Former smoker Sleep apnea Uses a vape Obesity with a BMI of 33.1 GI prophylaxis Full code Plan: Home medications have been reviewed and resumed as appropriate. Patient is questioning discontinuing her control pills and concerned if there will be side effects. Discussed with the patient about common side effects of discontinuing controls equate to abnormal periods and suggested to patient to follow-up with Dr. Anaya her primary care provider regarding discontinuing medications like this. Patient reports she is not sexually active and her significant other just recently broke up with her. Patient follows with Dr. Agrawal psychiatry in the outpatient setting and looking into following with [facility] outpatient Encouraged oral intake and compliance with group therapy sessions and psychiatry evaluation Encouraged compliance with medications. Labs reviewed and within normal limits Thank you kindly for this consultation The impression and plan of care has been dictated by Alanna Lombardi, Nurse Practitioner as directed. Dr. Jeanna MD I have performed a history and examination and MDM of this patient, discussed the same with the dictator, and agree with the dictator's assessment and plan as written ,documented as a scribe. Based on total visit time, I have performed more than 50% of the visit. Past Medical History Past Medical History: GERD/Reflux, Sleep Apnea/CPAP/BIPAP Additional Past Medical History / Comment(s): autism sleep apnea History of Any Multi-Drug Resistant Organisms: None Reported Past Surgical History: Cholecystectomy, Ear Surgery Additional Past Surgical History / Comment(s): wisdom, bunion Past Psychological History: ADD/ADHD, Anxiety, Depression Smoking Status: Former smoker, Vaper Past Alcohol Use History: Occasional Past Drug Use History: None Reported Medications and Allergies Home Medications Medication Instructions Recorded Confirmed Type Esomeprazole Magnesium [NexIUM] 20 mg PO DAILY 07/01/23 02/15/24 History Levonorgestrel/Ethin.estradiol 1 tab PO DAILY 07/01/23 02/15/24 History [Levora-28 Tablet] fluvoxaMINE MALEATE 50 mg PO BID 07/01/23 02/15/24 History busPIRone HCl [Buspar] 10 mg PO BID 02/15/24 02/15/24 History traZODone HCL [Desyrel] 100 mg PO HS 02/15/24 02/15/24 History Allergies Allergy/AdvReac Type Severity Reaction Status Date / Time lorazepam [From Ativan] Allergy Hallucinati Verified 02/15/24 11:10 ons quetiapine [From Seroquel] Allergy Unknown Verified 02/15/24 11:10 sertraline [From Zoloft] Allergy Hallucinati Verified 02/15/24 11:10 ons Physical Exam Vitals: Vital Signs Temp Pulse Pulse Resp BP BP Pulse Ox 02/16/24 06:59 97.7 F 97 14 130/74 02/15/24 17:01 98.2 F 84 18 113/66 97 02/15/24 16:00 98.1 F 67 18 118/78 98 02/15/24 15:00 98.1 F 67 18 118/78 98 Intake and Output 02/15/24 02/16/24 02/16/24 22:59 06:59 14:59 Other: Weight 101.7 kg Cranial Nerve Examination - Cranial Nerves Cranial Nerve I- Olfactory: Intact Cranial Nerve II- Optic: Intact Cranial Nerve III- Oculomotor: Intact Cranial Nerve IV- Trochlear: Intact Cranial Nerve V- Trigeminal: Intact Cranial Nerve - Abducens: Intact Cranial Nerve VII- Facial: Intact Cranial Nerve VIII- Auditory: Intact Cranial Nerve IX- Glossopharyngeal: Intact Cranial Nerve X- Vagus: Intact Cranial Nerve XI- Accessory: Intact Cranial Nerve XII- Hypoglossal: Intact Results CBC & Chem 7: 02/16/24 10:43 02/16/24 10:43 Labs: Abnormal Lab Results - Last 24 Hours (Table) 02/15/24 Range/Units 17:50 Urine Blood Small H (Negative) Urine Mucus Rare H (None) /hpf Assessment and Plan Time with Patient: Less than 30
[2024-02-16] MEDS: LORATADINE 10 MG TAB PO SCH (15:18)
[2024-02-16] MEDS: hydrOXYzine HCL 25 MG TAB PO PRN (15:57)
[2024-02-16] MEDS: haloperidoL 5 MG TAB PO PRN (17:12)
[2024-02-16 17:18] LABS: Glucose,Whole Blood 80 mg/dL (70-110)
[2024-02-16 21:22] LABS: Chol/HDL Ratio 4.67 Ratio; LDL Cholesterol,Calculated 141.8 mg/dL (0.0-131.0)
--- NOTE | 2024-02-16 22:12 | P.HP ---
Psychiatric H&P - . H&P Date: 02/16/24 History & Physical: Allergies Allergy/AdvReac Type Severity Reaction Status Date / Time lorazepam [From Ativan] Allergy Hallucinati Verified 02/15/24 11:10 ons quetiapine [From Seroquel] Allergy Unknown Verified 02/15/24 11:10 sertraline [From Zoloft] Allergy Hallucinati Verified 02/15/24 11:10 ons Vital Signs Temp 97.7 F 02/16/24 06:59 Pulse 97 02/16/24 06:59 Resp 14 02/16/24 06:59 BP 130/74 02/16/24 06:59 Pulse Ox 97 02/15/24 17:01 FiO2 Laboratory Last Values WBC 7.4 k/uL (3.8-10.6) 02/16/24 10:43 RBC 4.98 m/uL (3.80-5.40) 02/16/24 10:43 Hgb 16.2 gm/dL (11.4-16.0) H 02/16/24 10:43 Hct 47.3 % (34.0-46.0) H 02/16/24 10:43 MCV 94.9 fL (80.0-100.0) 02/16/24 10:43 MCH 32.6 pg (25.0-35.0) 02/16/24 10:43 MCHC 34.3 g/dL (31.0-37.0) 02/16/24 10:43 RDW 12.7 % (11.5-15.5) 02/16/24 10:43 Plt Count 215 k/uL (150-450) 02/16/24 10:43 MPV 8.9 02/16/24 10:43 Neutrophils % 61 % 02/16/24 10:43 Lymphocytes % 33 % 02/16/24 10:43 Monocytes % 4 % 02/16/24 10:43 Eosinophils % 1 % 02/16/24 10:43 Basophils % 0 % 02/16/24 10:43 Neutrophils # 4.5 k/uL (1.3-7.7) 02/16/24 10:43 Lymphocytes # 2.5 k/uL (1.0-4.8) 02/16/24 10:43 Monocytes # 0.3 k/uL (0-1.0) 02/16/24 10:43 Eosinophils # 0.0 k/uL (0-0.7) 02/16/24 10:43 Basophils # 0.0 k/uL (0-0.2) 02/16/24 10:43 Sodium 141 mmol/L (137-145) 02/16/24 10:43 Potassium 4.4 mmol/L (3.5-5.1) 02/16/24 10:43 Chloride 109 mmol/L (98-107) H 02/16/24 10:43 Carbon Dioxide 18 mmol/L (22-30) L 02/16/24 10:43 Anion Gap 14 mmol/L 02/16/24 10:43 BUN 9 mg/dL (7-17) 02/16/24 10:43 Creatinine 0.75 mg/dL (0.52-1.04) 02/16/24 10:43 Est GFR (CKD-EPI)AfAm >90 (>60 ml/min/1.73 sqM) 02/16/24 10:43 Est GFR (CKD-EPI)NonAf >90 (>60 ml/min/1.73 sqM) 02/16/24 10:43 Glucose 84 mg/dL (74-99) 02/16/24 10:43 POC Glucose (mg/dL) 80 mg/dL (70-110) 02/16/24 17:16 POC Glu Dictating Machine Transcriber ID Jennifer Hernandez 02/16/24 17:[address] Glu mg/dL 108 mg/dL 02/16/24 10:43 Hemoglobin A1c 5.4 % (<=6.0) 02/16/24 10:43 Calcium 9.4 mg/dL (8.4-10.2) 02/16/24 10:43 Total Bilirubin 0.9 mg/dL (0.2-1.3) 02/16/24 10:43 Conjugated Bilirubin 0.0 mg/dL (0.0-0.3) 02/16/24 10:43 Unconjugated Bilirubin 0.4 mg/dL (0.0-1.1) 02/16/24 10:43 Delta Bilirubin 0.5 mg/dL (0.0-0.2) H 02/16/24 10:43 AST 41 U/L (14-36) H 02/16/24 10:43 ALT 49 U/L (4-34) H 02/16/24 10:43 Alkaline Phosphatase 55 U/L (38-126) 02/16/24 10:43 Total Protein 7.7 g/dL (6.3-8.2) 02/16/24 10:43 Albumin 4.5 g/dL (3.5-5.0) 02/16/24 10:43 Triglycerides 112.00 mg/dL (0.00-149.00) 02/16/24 10:43 Cholesterol 209.00 mg/dL (0.00-200.00) H 02/16/24 10:43 LDL Cholesterol, Calc 141.8 mg/dL (0.0-131.0) H 02/16/24 10:43 VLDL Cholesterol, Calc 22.40 mg/dL (5.00-40.00) 02/16/24 10:43 HDL Cholesterol 44.80 mg/dL (40.00-60.00) 02/16/24 10:43 Cholesterol/HDL Ratio 4.67 Ratio 02/16/24 10:43 TSH 0.784 mIU/L (0.465-4.680) 02/16/24 10:43 Urine Color Light Yellow 02/15/24 17:50 Urine Appearance Clear (Clear) 02/15/24 17:50 Urine pH 6.0 (5.0-8.0) 02/15/24 17:50 Ur Specific [place] 1.012 (1.001-1.035) 02/15/24 17:50 Urine Protein Negative (Negative) 02/15/24 17:50 Urine Glucose (UA) Negative (Negative) 02/15/24 17:50 Urine Ketones Negative (Negative) 02/15/24 17:50 Urine Blood Small (Negative) H 02/15/24 17:50 Urine Nitrite Negative (Negative) 02/15/24 17:50 Urine Bilirubin Negative (Negative) 02/15/24 17:50 Urine Urobilinogen <2.0 mg/dL (<2.0) 02/15/24 17:50 Ur Leukocyte Esterase Negative (Negative) 02/15/24 17:50 Urine RBC 4 /hpf (0-5) 02/15/24 17:50 Urine WBC 2 /hpf (0-5) 02/15/24 17:50 Ur Squamous Epith Cells 1 /hpf (0-4) 02/15/24 17:50 Urine Mucus Rare /hpf (None) H 02/15/24 17:50 Urine HCG, Qual Not Detected (Not Detectd) 02/16/24 19:50 Urine Opiates Screen Not Detected (NotDetected) 02/14/24 22:23 Ur Oxycodone Screen Not Detected (NotDetected) 02/14/24 22:23 Urine Methadone Screen Not Detected (NotDetected) 02/14/24 22:23 Ur Barbiturates Screen Not Detected (NotDetected) 02/14/24 22:23 U Tricyclic Antidepress Not Detected (NotDetected) 02/14/24 22:23 Ur Phencyclidine Scrn Not Detected (NotDetected) 02/14/24 22:23 Ur Amphetamines Screen Not Detected (NotDetected) 02/14/24 22:23 U Methamphetamines Scrn Not Detected (NotDetected) 02/14/24 22:23 U Benzodiazepines Scrn Not Detected (NotDetected) 02/14/24 22:23 Urine Cocaine Screen Not Detected (NotDetected) 02/14/24 22:23 U Marijuana (THC) Screen Not Detected (NotDetected) 02/14/24 22:23 Influenza Type A (PCR) Not Detected (Not Detectd) 02/15/24 14:47 Influenza Type B (PCR) Not Detected (Not Detectd) 02/15/24 14:47 RSV (PCR) Not Detected (Not Detectd) 02/15/24 14:47 SARS-CoV-2 (PCR) Not Detected (Not Detectd) 02/15/24 14:47 02/16/24 22:11 Psychiatric Evaluation Identifying Data: Ms. Story is 28 years old, single, WF, who live in [place] in an apartment with a roommate. Chief Complaint: I felt that I needed to come to the hospital, I was feeling suicidal with a plan History of Psychiatric Illness- Current psychiatric History: The patient noted that her depression started getting worse for past 3 months. She experienced symptoms of feeling sad, lack of motivation, loss of interest in taking care of self, cutting herself and burn, bulimic and anorexic symptoms, crying spells, feeling numb, hopelessness and suicidal thoughts. She noted that her suicidal thoughts started a month ago. She was planning suicide for a week but did not act on them. On the day admis noe she did not trust herself. She first went to her psychiatrist, who wanted to increase her medications. She did not think that would have helped her, so she came to the ER. Past Psychiatric History: The patient started at age 6. She was diagnosed with ADHD. She was treated with Ritalin and Adderall and other stimulants. She has been diagnosed with ADHD, Autism, OCD, Borderline personality disorder, Atypical Anorexia and Depression over the years. She has been diagnosed with BPD recently. She has been under psychiatric care since age 6 till now off and on as an out-pt. Past Medication History: She has stated that over the years she has taken Zoloft, Abilify, Seroquel, Risperdal, Klonopin, Prozac, Fluvoxamine, Buspar. She has been on other medications but does not remember the names. She had side effects, Zoloft, Ativan and Seroquel XR. Fluvoxamine worked best for her. Leading questions: The patient denied /admitted to Depression and Anxiety. Denied SI or HI. Denied symptoms consistent with psychosis Drugs and alcohol history: The patient noted that she uses Alcohol occasionally. She takes Marijuana edibles once a month. Tobacco use: None. Past Medical history: Family History of Psychiatric Disorder: Father Suffers from BPD, Bipolar, Sociopathy. He has been hospitalized several times. The patient does not know the details. Her mother has Munchausens by proxy. Her brother has Tourettes and Autism. He has been hospitalized for slitting his wrist. Social History and Family History: Born and raised: The patient was born and raised in [place], [place]. She grew-up with one brother. She finished HS. She was in [employer]. She finished HS. She is currently in college. She takes one class at a time. 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 She never . She has no Children OTC: Nexium, control, Tylenol, Allergies: Ativan, Seroquel XR Objective: MSE: Alert and attentive. Orientation times three Dressed and Groomed: Appropriately. Pleasant and cooperative. Psychomotor Activity: Normal. Speech: Normal in tone, quality, and quantity. Mood: Depressed Affect: Consistent with mood.g SI or HI: None. Perceptual disturbance: None. Thought Content: No paranoia or other delusional thinking noted. Thought Process: Normal. Cognition: Intact Judgment and Insight: Good AIMS: Normal Labs: Non available, ordered. Diagnosis: Plan and Recommendations: Continue current Medications. Monitor MS and side effects of medications and adjust medications accordingly. Provide supportive psychotherapy and psychoeducation. The patient provided psychoeducation and advised to call office in case of worsening of symptoms or side effects. Advised to call 911 or go to nearest ED in case of acute worsening of symptomatology, severe side effects or having suicidal, homicidal thoughts and feeling unsafe at home. The patient provided Substance abuse counseling. Smoke cessation therapy. The patient to see a therapist on a regular basis once a week/ attend [facility]. CBC with Diff, CMP, TSH, Lipid Profile, HbA1c, EKG, Test ordered. Medication Consent with explanation of risk/benefits and side effects: Explained and obtained.
[2024-02-17 08:38] LABS: Basophils % (A) 1 %; Eosinophils # (A) 0.1 k/uL (0-0.7); Eosinophils % (A) 1 %; HCT 48.3 % (34.0-46.0); HGB 15.5 gm/dL (11.4-16.0); Lymphocytes # (A) 3.2 k/uL (1.0-4.8); Lymphocytes % (A) 43 %; MCH 30.8 pg (25.0-35.0); MCV 96.3 fL (80.0-100.0); Mean Platelet Volume 9.1; Monocytes # (A) 0.4 k/uL (0-1.0); Monocytes % (A) 5 %; Neutrophils # (A) 3.8 k/uL (1.3-7.7); Neutrophils % (A) 50 %; Platelet Count 222 k/uL (150-450); RBC 5.02 m/uL (3.80-5.40); RDW 12.2 % (11.5-15.5); WBC 7.5 k/uL (3.8-10.6)
[2024-02-17 08:49] LABS: African American GFR (CKD) >90 (>60 ml/min/1.73 sqM); Anion Gap 11 mmol/L; Blood Urea Nitrogen 10 mg/dL (7-17); Calcium 9.5 mg/dL (8.4-10.2); Carbon Dioxide 23 mmol/L (22-30); Chloride 109 mmol/L (98-107); Glucose 85 mg/dL (74-99); Magnesium 2.1 mg/dL (1.6-2.3); Non-African American GFR(CKD) >90 (>60 ml/min/1.73 sqM); Potassium 4.3 mmol/L (3.5-5.1); Sodium 143 mmol/L (137-145)
[2024-02-17] MEDS: MAG HYDROX/AL HYDROX/SIMETH 355 ML BOTTLE PO PRN (18:36)
--- NOTE | 2024-02-18 08:59 | P.PN ---
Progress Note - Text Progress Note Date: 02/18/24 In-Patient Follow-up Chief Complaint: I am feeling a little better today Subjective: The patient noted that she is keeping busy. Her friend Roselia has brought cross word puzzles to keep her engaged. She still feels depressed and anxious. She indicated that at night she gets some suicidal thoughts. the patient got only 100 mg of Luvox. The order did not go through as per her nurse. She has been participating in all the beltran activities. She feels benefitted by them. Overall, patient showing mild improvement. Leading questions: The patient admitted to Depression and Anxiety. She has SI at night. Denied HI. Denied symptoms consistent with psychosis Sleep and Appetite: Appetite is fine. Sleep is still impaired. Interim History: Behavioral Changes: None PRN meds/isolation/restraints/ change in status: None Change in medical condition: No change. Change in medications: No change. Side effects from Medications: The patient had an episode of being hot, light headed, and week legged. She associated it with Hydroxyzine. Her hydroxyzine has been discontinued. Objective- MSE: Alert and attentive. Orientation times three. Dressed and Groomed: Appropriately. Pleasant and cooperative. Psychomotor Activity: Normal. Speech: Normal in tone, quality, and quantity. Mood: Depressed and anxious. Affect: Consistent with mood. SI or HI: She admits to SI. Denies HI Perceptual disturbance: None. Thought Content: No paranoia or other delusional thinking noted. Thought Process: Normal. Cognition: Intact Judgment and Insight: Good. AIMS: Normal. Labs: Reviewed with patient. Diagnosis: No change. Plan and recommendation: Continue current Medications. Monitor MS and side effects of medications and adjust medications accordingly. Provide supportive psychotherapy. The patient provided psychoeducation. The patient provided Substance abuse counseling. The patient to continue attending the beltran activities. Test ordered. Medication Consent with explanation of risk/benefits and side effects: Explained and obtained.
--- NOTE | 2024-02-18 10:34 | P.PN ---
Progress Note - Text Progress Note Date: 02/18/24 In-Patient Follow-up Chief Complaint: My depression is little worse today Subjective: The patient noted that her depression is little worse today. She stated that her urges are getting strong. She does not know why. She stated that she talked to her friend, which helped but she feels lonely and depressed after talking to them. The patient indicated that she can not tell any difference with increased Luvox. She has not noticed any side effects. She requested to increase the dose of Protonix to twice a day. The patient showing some regression today. Leading questions: The patient admitted to Depression and Anxiety. She continue to have suicidal urges. . Denied HI. Denied symptoms consistent with psychosis Sleep and Appetite: Appetite is fine. Sleep is still impaired. Interim History: Behavioral Changes: None PRN meds/isolation/restraints/ change in status: None Change in medical condition: No change. Change in medications: No change. Side effects from Medications: Objective- MSE: Alert and attentive. Orientation times three. Dressed and Groomed: Appropriately. Pleasant and cooperative. Psychomotor Activity: Normal. Speech: Normal in tone, quality, and quantity. Mood: Depressed and anxious. Affect: Consistent with mood. SI or HI: She admits to SI. Denies HI Perceptual disturbance: None. Thought Content: No paranoia or other delusional thinking noted. Thought Process: Normal. Cognition: Intact Judgment and Insight: Good. AIMS: Normal. Labs: Reviewed with patient. Diagnosis: No change. Plan and recommendation: Continue current Medications. Monitor MS and side effects of medications and adjust medications accordingly. Provide supportive psychotherapy. The patient provided psychoeducation. The patient provided Substance abuse counseling. continue attending the beltran activities. Medication Consent with explanation of risk/benefits and side effects: Explained and obtained.
--- NOTE | 2024-02-19 11:21 | P.PN ---
Subjective Progress Note Date: 02/19/24 Patient Name: Tanya Story Date of : 89 Patient Status: Inpatient Attending Provider: Valentino Cronin Date: 02/19/24 Initialization Date: 02/18/24 10:32 In-Patient Follow-up Chief Complaint: my depression is about the same Subjective: the patient was seen chart was reviewed and case discussed with the nursing staff patient admits that she continues to feel depressed and is about the same She says that she does have suicidal thoughts but no specific plans at this time She does not know why.She admits that sometimes she feels discouraged that her medications are not working She has not noticed any side effects. . Sleep and Appetite: Appetite is fine. Sleep is still impaired. Interim History: Behavioral Changes: None PRN meds/isolation/restraints/ change in status: None Change in medical condition: No change. Change in medications: No change. Side effects from Medications: Objective- MSE: Alert and attentive. Orientation times three. Dressed and Groomed: Appropriately. Pleasant and cooperative. Psychomotor Activity: Normal. Speech: Normal in tone, quality, and quantity. Mood: Depressed and anxious. Affect: Consistent with mood. SI or HI: She admits to SI. Denies HI Perceptual disturbance: None. Thought Content: No paranoia or other delusional thinking noted. Thought Process: Normal. Cognition: Intact Judgment and Insight: Good. AIMS: Normal. Labs: Reviewed with patient. Diagnosis: No change. Plan and recommendation: Continue current Medications. Monitor MS and side effects of medications and adjust medications accordingly. Provide supportive psychotherapy. The patient provided psychoeducation. The patient provided Substance abuse counseling. continue attending the beltran activities. Medication Consent with explanation of risk/benefits and side effects: Explained and obtained. encourage participation on the beltran activities and supportive care James Amezquita M.D. Objective - Vital Signs Vital signs: Vital Signs Temp 97.7 F 02/19/24 06:07 Pulse 75 02/19/24 06:07 Resp 18 02/19/24 06:07 BP 116/72 02/19/24 06:07 Pulse Ox 98 02/19/24 06:07 FiO2 - Labs CBC & Chem 7: 02/17/24 07:41 02/17/24 07:41
--- NOTE | 2024-02-20 10:40 | P.PN ---
Subjective Progress Note Date: 02/20/24 Patient Name: Tanya Story Date of : [birth year] Patient Status: Inpatient Attending Provider: Valentino Cronin Date: 02/20/24 Initialization Date: 02/18/24 10:32 In-Patient Follow-up Chief Complaint: my depression is about the same Subjective: the patient was seen chart was reviewed and case discussed with the nursing staff patient admits that she continues to feel depressed and is about the same She says that she does have suicidal thoughts but no specific plans at this time Patient has also returned a plastic knife to the staff stating that she does not want to do anything to herself and that she is at a stage where she wants to get better and not do anything to harm herself She also requested for med changes with her Luvox She admits that she has a history of cutting herself and burning on herself and that she wants to get better Interim History: Behavioral Changes: None PRN meds/isolation/restraints/ change in status: None Change in medical condition: No change. Change in medications: No change. Side effects from Medications: Objective- MSE: Alert and attentive. Orientation times three. Dressed and Groomed: Appropriately. Pleasant and cooperative. Psychomotor Activity: Normal. Speech: Normal in tone, quality, and quantity. Mood: Depressed and anxious. Affect: Consistent with mood. SI or HI: She admits to SI. Denies HI Perceptual disturbance: None. Thought Content: No paranoia or other delusional thinking noted. Thought Process: Normal. Cognition: Intact Judgment and Insight: Good. AIMS: Normal. Labs: Reviewed with patient. Diagnosis: Major depressive disorder unspecified Personality disorder with borderline traits Plan and recommendation: Continue current Medications. Monitor MS and side effects of medications and adjust medications accordingly. Provide supportive psychotherapy. Will increase the Luvox to 100 mg twice daily Discussed effects and side effects The patient provided psychoeducation. The patient provided Substance abuse counseling. continue attending the beltran activities. Medication Consent with explanation of risk/benefits and side effects: Explained and obtained. encourage participation on the beltran activities and supportive care James Alirio Botello Objective - Vital Signs Vital signs: Vital Signs Temp 98.5 F 02/20/24 06:26 Pulse 77 02/20/24 06:26 Resp 20 02/20/24 06:26 BP 115/70 02/20/24 06:26 Pulse Ox 97 02/20/24 06:26 FiO2 Intake & Output 02/19/24 02/20/24 02/20/24 18:59 06:59 18:59 Weight 102 kg - Labs CBC & Chem 7: 02/17/24 07:41 02/17/24 07:41
[2024-02-21] MEDS ORDERED: hydrOXYzine pamoate 25 MG CAP PO PRN (09:50)
[2024-02-21] MEDS: clonazePAM 0.5 MG TAB PO SCH (20:34)
--- NOTE | 2024-02-21 21:24 | P.PN ---
Progress Note - Text Progress Note Date: 02/21/24 In-Patient Follow-up Chief Complaint: I felt worse last night Subjective: The patient noted that her depression is worse today. She was having suicidal thoughts last night. Her anxiety got worse after the suicidal thoughts. The patient noted that she was unable to eat and choking due to the order of finger foods. She requested to be given Klonopin because of paradoxical reaction to Ativan. She gets light headed with Hydroxyzine. The requested to be taken off Luvox because it is not helping her. She wanted to get off this medication at the time of admission. She accepted to give a trial with increase of dose. Since last night episode she does not want to take Luvox anymore. Suggested alternate medications. The patient opted for Effexor. Explained the risk/benefit and side effects. Suggested to taper off the Luvox. The patient requested to be taken get on Effexor. The patient explained possibility of withdrawal. Patient understood but wanted to off [place]. Will initiate Effexor 75 mg po daily. Leading questions: The patient admitted to Depression and Anxiety. She continue to have suicidal urges. . Denied HI. Denied symptoms consistent with psychosis Sleep and Appetite: Appetite is fine. Sleep is still impaired. Interim History: Behavioral Changes: None PRN meds/isolation/restraints/ change in status: None Change in medical condition: No change. Change in medications: No change. Side effects from Medications: Objective- MSE: Alert and attentive. Orientation times three. Dressed and Groomed: Appropriately. Pleasant and cooperative. Psychomotor Activity: Normal. Speech: Normal in tone, quality, and quantity. Mood: Depressed and anxious. Affect: Consistent with mood. SI or HI: She admits to SI. Denies HI Perceptual disturbance: None. Thought Content: No paranoia or other delusional thinking noted. Thought Process: Normal. Cognition: Intact Judgment and Insight: Good. AIMS: Normal. Labs: No new lab. Diagnosis: No change. Plan and recommendation: Continue current Medications. Monitor MS and side effects of medications and adjust medications accordingly. Provide supportive psychotherapy. The patient provided psychoeducation. The patient provided Substance abuse counseling. continue attending the beltran activities. Medication Consent with explanation of risk/benefits and side effects: Explained and obtained.
[2024-02-22] MEDS: VENLAFAXINE HCL ER 75 MG CAP PO SCH (08:43)
--- NOTE | 2024-02-22 16:31 | P.PN ---
Progress Note - Text Progress Note Date: 02/22/24 In-Patient Follow-up Chief Complaint: I am feeling better today Subjective: The patient noted that she had a rough night but has been feeling pretty good since this morning. The patient noted that she was having fleeting thought of suicide yesterday today she is not having any. Her mood has slightly improved. She did complain of being tired. The patient has been attending beltran activities and taking medications regularly. Overall, patient is showing improvement in her depression Leading questions: The patient admitted to Depression and Anxiety. Denied SI or HI. Denied symptoms consistent with psychosis Sleep and Appetite: The patient noted that her appetite is not good. Her sleep is fine. Interim History: Behavioral Changes: PRN meds/isolation/restraints/ change in status: Haldol for agitation/anxiety. Change in medical condition: No change. Change in medications: No change. Side effects from Medications: None. Objective- MSE: Alert and attentive. Orientation times three. Dressed and Groomed: Appropriately. Pleasant and cooperative. Psychomotor Activity: Normal. Speech: Normal in tone, quality, and quantity. Mood: Depressed, better Affect: Consistent with mood. SI or HI: None. Perceptual disturbance: None. Thought Content: No paranoia or other delusional thinking noted. Thought Process: Normal. Cognition: Intact Judgment and Insight: fair AIMS: Normal. Labs: No new labs. Diagnosis: MDD, BPD Plan and recommendation: Continue current Medications. Change Klonopin to prn, Increased Effexor to 150 mg po qd. Monitor MS and side effects of medications and adjust medications accordingly. Provide supportive psychotherapy. The patient provided psychoeducation. The patient provided Substance abuse counseling. Smoke cessation therapy. The patient to continue attending the beltran activities. Medication Consent with explanation of risk/benefits and side effects: Explained and obtained.
[2024-02-23] MEDS: VENLAFAXINE HCL ER 150 MG CAP PO SCH (08:15)
--- NOTE | 2024-02-23 12:39 | P.PN ---
Progress Note - Text Progress Note Date: 02/23/24 In-Patient Follow-up Chief Complaint: I am feeling good Subjective: The patient noted that she doing well. She stated that she is planning to go back to work and start her college. She intends to attend [facility] for follow-up. She slept good last night. The patient requested for plastic fork and spoons to eat. The patient noted that she has had no thoughts hurting herself. She has not had any anxiety spells or behavioral out-bursts. The noted that she feels uch improved. She feels that she is almost close to her normal self. Leading questions: The patient admitted to mild depression and anxiety.. Denied SI or HI. Denied symptoms consistent with psychosis Sleep and Appetite: Reported to be good. Interim History: Behavioral Changes: PRN meds/isolation/restraints/ change in status: Haldol for agitation/anxiety. Change in medical condition: No change. Change in medications: No change. Side effects from Medications: None. Objective- MSE: Alert and attentive. Orientation times three. Dressed and Groomed: Appropriately. Pleasant and cooperative. Psychomotor Activity: Normal. Speech: Normal in tone, quality, and quantity. Mood: I am slightly depressed Affect: Consistent with mood. SI or HI: None. Perceptual disturbance: None. Thought Content: No paranoia or other delusional thinking noted. Thought Process: Normal. Cognition: Intact Judgment and Insight: fair AIMS: Normal. Labs: No new labs. Diagnosis: MDD, BPD Plan and recommendation: Continue current Medications. Change Klonopin to prn, Increased Effexor to 225 mg po qd. Monitor MS and side effects of medications and adjust medications accordingly. Provide supportive psychotherapy. The patient provided psychoeducation. The patient provided Substance abuse counseling. Smoke cessation therapy. The patient to continue attending the beltran activities. Medication Consent with explanation of risk/benefits and side effects: Explained and obtained.
[2024-02-23] MEDS: clonazePAM 0.5 MG TAB PO PRN (14:23)
[2024-02-24 07:50] VITALS: BP 127/82; PULSE 82; RESP 14; TEMP 97.7
--- NOTE | 2024-02-24 20:21 | P.DS ---
Providers Date of admission: 02/15/24 15:41 Expected date of discharge: 02/24/24 Attending physician: Valentino Cronin MD Consults: 02/15/24 15:57 Consult Physician Routine Consulting Provider: Andrew Meeks Consult Reason/Comments: Medical H&P Do you want consulting provider notified?: Yes Primary care physician: [facility] Course: Discharge Summary HPI: Identifying Data: Ms. Story is 28 years old, single, WF, who live in [place] in an apartment with a roommate. Chief Complaint: I felt that I needed to come to the hospital, I was feeling suicidal with a plan History of Psychiatric Illness- Current psychiatric History: The patient noted that her depression started getting worse for past 3 months. She experienced symptoms of feeling sad, lack of motivation, loss of interest in taking care of self, cutting herself and burn, bulimic and anorexic symptoms, crying spells, feeling numb, hopelessness and suicidal thoughts. She noted that her suicidal thoughts started a month ago. She was planning suicide for a week but did not act on them. On the day admission she did not trust herself. She first went to her psychiatrist, who wanted to increase her medications. She did not think that would have help her, so she came to the ER. Past Medication History: She has stated that over the years she has taken Zoloft, Abilify, Seroquel, Risperdal, Klonopin, Prozac, Fluvoxamine, Buspar. She has been on other medications but does not remember the names. She had side effects, Zoloft, Ativan, and Seroquel XR. Fluvoxamine worked best for her. Leading questions: The patient denied /admitted to Depression and Anxiety. Denied SI or HI. Denied symptoms consistent with psychosis Hospital Course: After admission the patient was started on Effexor, Buspar, and later Clonazepam was added to her treatment. Her Luvox. was discontinued. She was also involved in beltran milieu and individual psychotherapy. With this approach the patient slowly started improving. Her depression improved, and her suicidal thoughts abated. She became more visible on the unit and interacted with staff and the peers well. The patient was thought to be stable to be discharged without-pt follow-up. She has no firearms at home. MSE: Alert and attentive. Orientation times three Dressed and Groomed: Appropriately. Pleasant and cooperative. Psychomotor Activity: Normal. Speech: Normal in tone, quality, and quantity. Mood: Depressed and anxious. Affect: Consistent with mood. SI or HI: The patient continues to have suicidal thoughts Perceptual disturbance: None. Thought Content: No paranoia or other delusional thinking noted. Thought Process: Normal. Cognition: Intact Judgment and Insight: Poor Impression: Major Depressive Disorder, severe, recurrent Cluster B personality Disorder Plan: The patient to be discharged today. The patient has attained good improvement since admission. He is stable to be followed as an outpatient. The patient is not suicidal or Homicidal. He does not pose any harm to self or others. The patient remains at a greater risk of self-harm or harm to others than general population on a chronic basis due to psychiatric illness and substance abuse. The patient will continue taking following medication post discharge. The importance of medication compliance and maintaining regular appointments at psychiatric out-pt and PCP clinic was explained and encouraged. The patient was also advised to seek substance abuse counseling. The understood and agreed with the recommendations. criminal justice social worker to arrange for and conduct family meeting to ensure safety upon discharge and answer any questions. The social professionals to arrange for patients follow-up appointments at [facility] for psychiatric care along with follow-up with PCP. The patient provided psychoeducation. Advised to call 911 or go to nearest ED or call this hospital in case of acute worsening of symptomatology, severe side eff ects or having suicidal, homicidal thoughts and feeling unsafe at home. Plan - Discharge Summary Discharge Rx Participant: Yes New Discharge Prescriptions: New busPIRone HCl [Buspar] 10 mg PO BID 30 Days #30 tab Loratadine [Claritin] 10 mg PO DAILY tab Venlafaxine HCl ER [Effexor XR] 225 mg PO DAILY 30 Days #30 cap Continue Levonorgestrel/Ethin.estradiol [Levora-28 Tablet] 1 tab PO DAILY traZODone HCL [Desyrel] 100 mg PO HS Discontinued fluvoxaMINE MALEATE 50 mg PO BID Esomeprazole Magnesium [NexIUM] 20 mg PO DAILY busPIRone HCl [Buspar] 10 mg PO BID Discharge Medication List Levonorgestrel/Ethin.estradiol [Levora-28 Tablet] 1 tab PO DAILY 07/01/23 [History] traZODone HCL [Desyrel] 100 mg PO HS 02/15/24 [History] Loratadine [Claritin] 10 mg PO DAILY tab 02/24/24 [Rx] Venlafaxine HCl ER [Effexor XR] 225 mg PO DAILY 30 Days #30 cap 02/24/24 [Rx] busPIRone HCl [Buspar] 10 mg PO BID 30 Days #30 tab 02/24/24 [Rx] Follow up Appointment(s)/Referral(s): [facility] [Outside] - 02/28/24 10:00 am (with Hope ) Em Burks [Primary Care Provider] - 1-2 days Patient Instructions/Handouts: Depression (DC), Paranoid Personality Disorder (DC)
== END 2024-02-24 13:21 | disposition home or self-care (01) | DRG 885 ==
LOC: EC 18:42 → 3MHU 02-15 15:41
PROVIDERS: ADMIT Psychiatry & Neurology Psychiatry; ATTEND Psychiatry & Neurology Psychiatry
DX: F33.2 Major depressive disorder, recurrent severe without psychotic features (principal); R45.851 Suicidal ideations; E66.9 Obesity, unspecified; F41.9 Anxiety disorder, unspecified; F42.9 Obsessive-compulsive disorder, unspecified; F60.3 Borderline personality disorder; F60.89 Other specific personality disorders; F84.0 Autistic disorder; R63.0 Anorexia; G47.30 Sleep apnea, unspecified; K21.9 Gastro-esophageal reflux disease without esophagitis; Z68.33 Body mass index [BMI] 33.0-33.9, adult; Z79.899 Other long term (current) drug therapy; Z87.891 Personal history of nicotine dependence; Z91.52 Personal history of nonsuicidal self-harm; Z28.21 Immunization not carried out because of patient refusal; Z11.52 Encounter for screening for COVID-19
CPT/HCPCS: 36415; 80048; 80053; 80061; 80306; 81001; 81025; 82075; 82248; 83036; 83735; 84443; 84481; 85025; 87636; 93005; 99285

== ENCOUNTER 2024-04-14 19:28 | Emergency (ER) | payer MEDICARE, BC ==
[2024-04-14 19:36] VITALS: TEMP 97.3
[2024-04-14 19:45] LABS: Glucose,Whole Blood 79 mg/dL (70-110)
[2024-04-14] MEDS: SODIUM CHLORIDE 0.9% 1,000 ML IV STA (19:50)
[2024-04-14 19:54] LABS: Basophils % (A) 0 %; Eosinophils # (A) 0.1 k/uL (0-0.7); Eosinophils % (A) 1 %; HCT 40.3 % (34.0-46.0); Lymphocytes # (A) 2.9 k/uL (1.0-4.8); Lymphocytes % (A) 32 %; MCH 30.8 pg (25.0-35.0); MCHC 32.4 g/dL (31.0-37.0); MCV 95.1 fL (80.0-100.0); Mean Platelet Volume 8.6; Monocytes # (A) 0.4 k/uL (0-1.0); Monocytes % (A) 5 %; Neutrophils # (A) 5.5 k/uL (1.3-7.7); Neutrophils % (A) 61 %; Platelet Count 182 k/uL (150-450); RBC 4.24 m/uL (3.80-5.40); RDW 12.4 % (11.5-15.5)
[2024-04-14 20:07] LABS: African American GFR (CKD) >90 (>60 ml/min/1.73 sqM); Albumin 4.1 g/dL (3.5-5.0); Alcohol <10 mg/dL; Anion Gap 7 mmol/L; Blood Urea Nitrogen 17 mg/dL (7-17); Calcium 9.3 mg/dL (8.4-10.2); Carbon Dioxide 21 mmol/L (22-30); Chloride 108 mmol/L (98-107); Glucose 79 mg/dL (74-99); Magnesium 1.8 mg/dL (1.6-2.3); Non-African American GFR(CKD) >90 (>60 ml/min/1.73 sqM); Sodium 136 mmol/L (137-145); Total Bilirubin 0.8 mg/dL (0.2-1.3); Total Protein 6.5 g/dL (6.3-8.2)
[2024-04-14 20:12] LABS: ALT 80 U/L (4-34); AST 52 U/L (14-36); Alkaline Phosphatase 54 U/L (38-126); Potassium 3.9 mmol/L (3.5-5.1)
--- NOTE | 2024-04-14 20:27 | CT ---
EXAMINATION TYPE: CT brain wo con DATE OF EXAM: 04/14/2024 COMPARISON: None HISTORY: seizure CT DLP: 1141.3 mGycm. Automated Exposure Control for Dose Reduction was Utilized. TECHNIQUE: CT scan of the head is performed without contrast. Findings: The ventricles, basal cisterns and sulci over the convexities are within normal limits and there is n o mass effect or shift of midline structures. No abnormal density is seen throughout the brain parenchyma and there is no acute intra or extra-axia l hemorrhage. The posterior fossa including the brainstem, fourth ventricle and cerebellar pontine angles appear no rmal. Intraorbital contents appear normal and symmetric. Visualized paranasal sinuses and mastoid air cells are well aerated. The calvarium is intact. IMPRESSION: No significant abnormality seen. There is no acute bleed or mass effect.
[2024-04-14 20:30] LABS: HCG,Quantitative Serum <2.4 mIU/mL
[2024-04-14 21:06] LABS: Appearance,Urine Clear (Clear); Bacteria,Urine Rare /hpf; Bilirubin,Urine Negative (Negative); Blood,Urine Trace (Negative); Color,Urine Colorless; Glucose,Urine (UA) Negative (Negative); Ketones,Urine Negative (Negative); Leukocyte Esterase,Urine Negative (Negative); Mucus,Urine Rare /hpf; Nitrite,Urine Negative (Negative); Protein,Urine Negative (Negative); RBC,Urine 2 /hpf (0-5); Specific Gravity,Urine 1.006 (1.001-1.035); Squamous Epithelial Cell,Urine 3 /hpf (0-4); Urobilinogen,Urine <2.0 mg/dL (<2.0); WBC,Urine 1 /hpf (0-5)
[2024-04-14 21:14] LABS: Amphetamine Screen,Urine Not Detected (NotDetected); Barbiturate Screen,Urine Not Detected (NotDetected); Benzodiazepines Screen,Urine Not Detected (NotDetected); Cocaine Screen,Urine Not Detected (NotDetected); Methadone Screen, Urine Not Detected (NotDetected); Opiate Screen,Urine Not Detected (NotDetected); Oxycodone Screen, Urine Not Detected (NotDetected); Phencyclidine Screen,Urine Not Detected (NotDetected); Tricyclic Antidepressant,Urine Not Detected (NotDetected); Urn Cannabinoid Scrn Not Detected (NotDetected)
[2024-04-14 21:31] VITALS: PULSE 75; RESP 18
--- NOTE | 2024-04-14 21:38 | ED ---
General Adult HPI - General Chief complaint: Seizure Stated complaint: Seizure Time Seen by Provider: 04/14/24 19:41 Source: patient, EMS, RN notes reviewed, old records reviewed Mode of arrival: EMS - History of Present Illness Initial comments: 28-year-old female presenting with likely syncopal episode. Patient was working in the heat 90+ degrees. She states she had been drinking but likely not enough. She was brought in with either syncope versus possible absence seizure. She has remote history of seizure-like activity but no definitive diagnosis. She is currently not driving secondary to similar episodes in the past. She is working 2 jobs and going to college and believes she may also be quite sleep deprived. - Related Data Home Medications Medication Instructions Recorded Confirmed Levonorgestrel/Ethin.estradiol 1 tab PO DAILY 07/01/23 02/15/24 [Levora-28 Tablet] traZODone HCL [Desyrel] 100 mg PO HS 02/15/24 02/15/24 Previous Rx's Medication Instructions Recorded Loratadine [Claritin] 10 mg PO DAILY tab 02/24/24 Venlafaxine HCl ER [Effexor XR] 225 mg PO DAILY 30 Days #30 cap 02/24/24 busPIRone HCl [Buspar] 10 mg PO BID 30 Days #30 tab 02/24/24 Allergies Allergy/AdvReac Type Severity Reaction Status Date / Time lorazepam [From Ativan] Allergy Hallucinati Verified 02/15/24 11:10 ons quetiapine [From Seroquel] Allergy Unknown Verified 02/15/24 11:10 sertraline [From Zoloft] Allergy Hallucinati Verified 02/15/24 11:10 ons Review of Systems ROS Statement: Those systems with pertinent positive or pertinent negative responses have been documented in the HPI. ROS Other: All systems not noted in ROS Statement are negative. Past Medical History Past Medical History: GERD/Reflux, Sleep Apnea/CPAP/BIPAP Additional Past Medical History / Comment(s): autism sleep apnea History of Any Multi-Drug Resistant Organisms: None Reported Past Surgical History: Cholecystectomy, Ear Surgery Additional Past Surgical History / Comment(s): wisdom, bunion Past Psychological History: ADD/ADHD, Anxiety, Depression Smoking Status: Former smoker, Vaper Past Alcohol Use History: Occasional Past Drug Use History: None Reported General Exam General appearance: alert, in no apparent distress Head exam: Present: atraumatic, normocephalic Eye exam: Present: normal appearance, PERRL ENT exam: Present: mucous membranes dry Neck exam: Present: normal inspection. Absent: tenderness, meningismus Respiratory exam: Present: normal lung sounds bilaterally. Absent: respiratory distress, wheezes Cardiovascular Exam: Present: regular rate, normal rhythm GI/Abdominal exam: Present: soft. Absent: distended, tenderness, guarding, rebound Extremities exam: Present: normal inspection, normal capillary refill. Absent: pedal edema Neurological exam: Present: alert, oriented X3, CN II-XII intact. Absent: motor sensory deficit Psychiatric exam: Present: normal affect, normal mood Skin exam: Present: warm, dry, intact. Absent: cyanosis, diaphoretic Course Vital Signs 04/14/24 04/14/24 19:34 21:30 Temperature 97.3 F L Pulse Rate 90 75 Respiratory 19 18 Rate Blood Pressure 131/83 129/85 O2 Sat by Pulse 100 Oximetry Medical Decision Making - Medical Decision Making Was pt. sent in by a medical professional or institution (, PA, TYPEWRITER MECHANIC, urgent care, hospital, or prison...) When possible be specific @ -No Did you speak to anyone other than the patient for history (EMS, parent, family, police, friend...)? What history was obtained from this source @ -No Did you review nursing and triage notes (agree or disagree)? Why? @ -I reviewed and agree with nursing and triage notes Were old charts reviewed (outside hosp., previous admission, EMS record, old EKG, old radiological studies, urgent care reports/EKG's, prison records)? Report findings @ -No old charts were reviewed Differential Diagnosis (chest pain, altered mental status, abdominal pain women, abdominal pain men, vaginal bleeding, weakness, fever, dyspnea, syncope, headache, dizziness, GI bleed, back pain, seizure, CVA, palpatations, mental health, musculoskeletal)? @ -Not applicable EKG interpreted by me (3pts min.). @EKG: Sinus rhythm rate of 78, [place] interval 161, QRS duration 110, QTc [address] segment elevation X-rays interpreted by me (1pt min.). @ -None done CT interpreted by me (1pt min.). @ -CT brain negative for intracranial hemorrhage or mass effect U/S interpreted by me (1pt. min.). @ -None done What testing was considered but not performed or refused? (CT, X-rays, U/S, labs )? Why? @ -None What meds were considered but not given or refused? Why? @ -None Did you discuss the management of the patient with other professionals (professionals i.e. , PA, TYPEWRITER MECHANIC, lab, RT, psych nurse, social media specialist, extractor plant operator, teacher, customs and border protection officer, correctional counselor/case manager)? Give summary @ -No Was smoking cessation discussed for >3mins.? @ -No Was critical care preformed (if so, how long)? @ -No Were there social determinants of health that impacted care today? How? (Homelessness, low income, unemployed, alcoholism, drug addiction, transportation, low edu. Level, literacy, decrease access to med. care, shelter, rehab)? @ -No Was there de-escalation of care discussed even if they declined (Discuss DNR or withdrawal of care, Hospice)? DNR status @ -No What co-morbidities impacted this encounter? (DM, HTN, Smoking, COPD, CAD, Cancer, CVA, ARF, Chemo, Hep., AIDS, mental health diagnosis, sleep apnea, morbid obesity)? @ -None Was patient admitted / discharged? Hospital course, mention meds given and route, prescriptions, significant lab abnormalities, going to OR and other pertinent info. @ -[28-year-old female with seizure for syncope. Patient is alert at the time my evaluation with stable vitals. She is in sinus rhythm. She admits to being overworked and likely dehydrated. Given IV fluids, assessment is made in the emergency department including EKG, CT, laboratory testing. Testing is unremarkable and the patient regains normal level of consciousness and no vital sign abnormalities. Patient will continue to not drive and will follow closely with her primary care provider. Undiagnosed new problem with uncertain prognosis? @ -No Drug Therapy requiring intensive monitoring for toxicity (Heparin, Nitro, Insulin, Cardizem)? @ -No Were any procedures done? @ -No Diagnosis/symptom? @ -Syncope, dehydration, possible seizure Acute, or Chronic, or Acute on Chronic? @ -[Acute Uncomplicated (without systemic symptoms) or Complicated (systemic symptoms)? @ -Default Side effects of treatment? @ -No Exacerbation, Progression, or Severe Exacerbation? @ -No Poses a threat to life or bodily function? How? (Chest pain, [place], [place], pneumonia, PE, COPD, DKA, ARF, appy, cholecystitis, CVA, Diverticulitis, Homicidal, Suicidal, threat to staff... and all critical care pts) @Low risk at this time - Lab Data Result diagrams: 04/14/24 19:45 04/14/24 19:45 Lab Results 04/14/24 04/14/24 04/14/24 Range/Units 19:44 19:45 19:45 WBC 9.0 (3.8-10.6) k/uL RBC 4.24 (3.80-5.40) m/uL Hgb 13.0 (11.4-16.0) gm/dL Hct 40.3 (34.0-46.0) % MCV 95.1 (80.0-100.0) fL MCH 30.8 (25.0-35.0) pg MCHC 32.4 (31.0-37.0) g/dL RDW 12.4 (11.5-15.5) % Plt Count 182 (150-450) k/uL MPV 8.6 Neutrophils % 61 % Lymphocytes % 32 % Monocytes % 5 % Eosinophils % 1 % Basophils % 0 % Neutrophils # 5.5 (1.3-7.7) k/uL Lymphocytes # 2.9 (1.0-4.8) k/uL Monocytes # 0.4 (0-1.0) k/uL Eosinophils # 0.1 (0-0.7) k/uL Basophils # 0.0 (0-0.2) k/uL Sodium 136 L (137-145) mmol/L Potassium 3.9 (3.5-5.1) mmol/L Chloride 108 H (98-107) mmol/L Carbon Dioxide 21 L (22-30) mmol/L Anion Gap 7 mmol/L BUN 17 (7-17) mg/dL Creatinine 0.61 (0.52-1.04) mg/dL Est GFR (CKD-EPI)AfAm >90 (>60 ml/min/1.73 sqM) Est GFR (CKD-EPI)NonAf >90 (>60 ml/min/1.73 sqM) Glucose 79 (74-99) mg/dL POC Glucose (mg/dL) 79 (70-110) mg/dL POC Glu Hospital Insurance Representative ID Jane Santacruz Calcium 9.3 (8.4-10.2) mg/dL Magnesium 1.8 (1.6-2.3) mg/dL Total Bilirubin 0.8 (0.2-1.3) mg/dL AST 52 H (14-36) U/L ALT 80 H (4-34) U/L Alkaline Phosphatase 54 (38-126) U/L Total Protein 6.5 (6.3-8.2) g/dL Albumin 4.1 (3.5-5.0) g/dL HCG, Quant <2.4 mIU/mL Urine Color Urine Appearance (Clear) Urine pH (5.0-8.0) Ur Specific [place] (1.001-1.035) Urine Protein (Negative) Urine Glucose (UA) (Negative) Urine Ketones (Negative) Urine Blood (Negative) Urine Nitrite (Negative) Urine Bilirubin (Negative) Urine Urobilinogen (<2.0) mg/dL Ur Leukocyte Esterase (Negative) Urine RBC (0-5) /hpf Urine WBC (0-5) /hpf Ur Squamous Epith Cells (0-4) /hpf Urine Bacteria (None) /hpf Urine Mucus (None) /hpf Urine Opiates Screen (NotDetected) Ur Oxycodone Screen (NotDetected) Urine Methadone Screen (NotDetected) Ur Barbiturates Screen (NotDetected) U Tricyclic Antidepress (NotDetected) Ur Phencyclidine Scrn (NotDetected) Ur Amphetamines Screen (NotDetected) U Methamphetamines Scrn (NotDetected) U Benzodiazepines Scrn (NotDetected) Urine Cocaine Screen (NotDetected) U Marijuana (THC) Screen (NotDetected) Serum Alcohol <10 mg/dL 04/14/24 Range/Units 20:56 WBC (3.8-10.6) k/uL RBC (3.80-5.40) m/uL Hgb (11.4-16.0) gm/dL Hct (34.0-46.0) % MCV (80.0-100.0) fL MCH (25.0-35.0) pg MCHC (31.0-37.0) g/dL RDW (11.5-15.5) % Plt Count (150-450) k/uL MPV Neutrophils % % Lymphocytes % % Monocytes % % Eosinophils % % Basophils % % Neutrophils # (1.3-7.7) k/uL Lymphocytes # (1.0-4.8) k/uL Monocytes # (0-1.0) k/uL Eosinophils # (0-0.7) k/uL Basophils # (0-0.2) k/uL Sodium (137-145) mmol/L Potassium (3.5-5.1) mmol/L Chloride (98-107) mmol/L Carbon Dioxide (22-30) mmol/L Anion Gap mmol/L BUN (7-17) mg/dL Creatinine (0.52-1.04) mg/dL Est GFR (CKD-EPI)AfAm (>60 ml/min/1.73 sqM) Est GFR (CKD-EPI)NonAf (>60 ml/min/1.73 sqM) Glucose (74-99) mg/dL POC Glucose (mg/dL) (70-110) mg/dL POC Glu Hospital Insurance Representative ID Calcium (8.4-10.2) mg/dL Magnesium (1.6-2.3) mg/dL Total Bilirubin (0.2-1.3) mg/dL AST (14-36) U/L ALT (4-34) U/L Alkaline Phosphatase (38-126) U/L Total Protein (6.3-8.2) g/dL Albumin (3.5-5.0) g/dL HCG, Quant mIU/mL Urine Color Colorless Urine Appearance Clear (Clear) Urine pH 6.0 (5.0-8.0) Ur Specific [place] 1.006 (1.001-1.035) Urine Protein Negative (Negative) Urine Glucose (UA) Negative (Negative) Urine Ketones Negative (Negative) Urine Blood Trace H (Negative) Urine Nitrite Negative (Negative) Urine Bilirubin Negative (Negative) Urine Urobilinogen <2.0 (<2.0) mg/dL Ur Leukocyte Esterase Negative (Negative) Urine RBC 2 (0-5) /hpf Urine WBC 1 (0-5) /hpf Ur Squamous Epith Cells 3 (0-4) /hpf Urine Bacteria Rare H (None) /hpf Urine Mucus Rare H (None) /hpf Urine Opiates Screen Not Detected (NotDetected) Ur Oxycodone Screen Not Detected (NotDetected) Urine Methadone Screen Not Detected (NotDetected) Ur Barbiturates Screen Not Detected (NotDetected) U Tricyclic Antidepress Not Detected (NotDetected) Ur Phencyclidine Scrn Not Detected (NotDetected) Ur Amphetamines Screen Not Detected (NotDetected) U Methamphetamines Scrn Not Detected (NotDetected) U Benzodiazepines Scrn Not Detected (NotDetected) Urine Cocaine Screen Not Detected (NotDetected) U Marijuana (THC) Screen Not Detected (NotDetected) Serum Alcohol mg/dL Disposition Clinical Impression: Syncope, Dehydration Disposition: ADMITTED IP TO THIS HOSP Condition: Stable Is patient prescribed a controlled substance at d/c from ED?: No Referrals: Em Burks [Primary Care Provider] - 1-2 days Time of Disposition: 22:06
[2024-04-14 22:13] VITALS: BP 121/74
== END 2024-04-14 22:20 | disposition other institution (70) ==
LOC: EC 19:28
DX: E86.0 Dehydration (principal); R55 Syncope and collapse; F17.290 Nicotine dependence, other tobacco product, uncomplicated; Z88.8 Allergy status to other drugs, medicaments and biological substances; Z90.49 Acquired absence of other specified parts of digestive tract
CPT/HCPCS: 36415; 93005; 80053; 83735; 85025; 81001; 84702; 80306; 70450; 99285; 96360; G0480; 80320